=== PATIENT | male | born 1985 | race Caucasian/White ===

== ENCOUNTER 2018-02-13 12:49 | Emergency (ER) | payer OTHER ==
[2018-02-13 12:57] VITALS: BMI 25.0
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
[2018-02-13] MEDS ORDERED: SODIUM CHLORIDE 0.9% 500 ML INFUS.BAG IV ONE (14:04)
[2018-02-13 14:16] LABS: ALBUMIN 3.8 g/dl (3.4-5.0); ALK PHOS 138 U/L (45-117); ANION GAP 11 MMOL/L (8-16); BLOOD UREA NITROGEN 4 mg/dL (7-18); CALCIUM 8.1 mg/dL (8.5-10.1); CHLORIDE 98 mmol/L (98-107); CO2 26 mmol/L (21-32); CREATININE 0.5 mg/dL (0.55-1.3); GLUCOSE,RANDOM 130 mg/dL (74-106); POTASSIUM 3.5 mmol/L (3.5-5.1); SGOT/AST 226 U/L (15-37); SGPT/ALT 141 U/L (13-61); SODIUM 135 mmol/L (136-145); TOT PROT 7.9 g/dl (6.4-8.2)
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
[2018-02-13 15:22] LABS: HEMATOCRIT 44.9 % (35.4-49); HEMOGLOBIN 16.1 GM/dL (11.7-16.9); MCH 34.2 pg (25.7-33.7); MCHC 35.9 g/dl (32.0-35.9); MEAN CELL VOLUME 95.1 fl (80-96); MEAN PLT VOLUME 7.2 fl (7.5-11.1); PLATELET COUNT 151 K/MM3 (134-434); RBC 4.71 M/mm3 (4.00-5.60); RDW 12.7 % (11.9-15.9); WHITE BLOOD COUNT 7.2 K/mm3 (4.0-10.0)
[2018-02-13] MEDS ORDERED: DIPHTH,PERTUSS(ACELL),TET 0.5 ML DISP.SYRIN IM ONE (16:13)
[2018-02-13] MEDS ORDERED: SODIUM CHLORIDE 1,000 ML IV STA (16:35)
[2018-02-13] MEDS ORDERED: ACETAMINOPHEN 1000 MG/100 ML VIAL (NON FORMULARY) IVPB ONE (16:50)
[2018-02-13] MEDS ORDERED: ACETAMINOPHEN INJECTION 100 ML IVPB ONE (16:53)
[2018-02-13 17:28] LABS: URINE APPEARANCE CLEAR; URINE BILIRUBIN NEGATIVE (<2.0 mg/dL); URINE COLOR YELLOW; URINE GLUCOSE (UA) NEGATIVE (NEGATIVE); URINE KETONE TRACE (NEGATIVE); URINE LEUK ESTERASE NEGATIVE (NEGATIVE); URINE NITRITE NEGATIVE (NEGATIVE); URINE PROTEIN NEGATIVE (NEGATIVE); URINE UROBILINOGEN 4.0 E.U/dl mg/dL (0.2-1.0)
[2018-02-13 18:22] VITALS: BP 128/79; PULSE 98; TEMP 98.4
--- NOTE | 2018-02-14 10:58 | EKG ---
Test Reason : Blood Pressure : / mmHG Vent. Rate : 115 BPM Atrial Rate : 115 BPM P-R Int : 162 ms QRS Dur : 094 ms QT Int : 342 ms P-R-T Axes : 037 -07 022 degrees QTc Int : 473 ms SINUS TACHYCARDIA OTHERWISE NORMAL ECG WHEN COMPARED WITH ECG OF 04-JAN-2015 16:34, NO SIGNIFICANT CHANGE WAS FOUND Confirmed by ARACELI ROUSE MD ([id number]) on 02/14/2018 10:57:28 AM Referred By: Confirmed By:ARACELI ROUSE MD
== END 2018-02-13 18:26 | disposition home or self-care (01) ==
LOC: JER 12:49
PROC: 3E0234Z Introduction of Serum, Toxoid and Vaccine into Muscle, Percutaneous Approach (ICD-10-PCS; principal; 2018-02-13)
PROC: 3E0337Z Introduction of Electrolytic and Water Balance Substance into Peripheral Vein, Percutaneous Approach (ICD-10-PCS; 2018-02-13)
PROC: BW41ZZZ Ultrasonography of Abdomen and Pelvis (ICD-10-PCS; 2018-02-13)
PROC: BW41ZZZ Ultrasonography of Abdomen and Pelvis (ICD-10-PCS; 2018-02-13)
DX: S05.12XA Contusion of eyeball and orbital tissues, left eye, initial encounter (principal); S20.211A Contusion of right front wall of thorax, initial encounter; H11.32 Conjunctival hemorrhage, left eye; S40.812A Abrasion of left upper arm, initial encounter; S40.811A Abrasion of right upper arm, initial encounter; F10.10 Alcohol abuse, uncomplicated; E86.0 Dehydration; Y04.2XXA Assault by strike against or bumped into by another person, initial encounter; Y93.89 Activity, other specified; Y92.89 Other specified places as the place of occurrence of the external cause; Y99.8 Other external cause status; Y07.9 Unspecified perpetrator of maltreatment and neglect
CPT/HCPCS: 36415; 70450-TC; 70486-TC; 71260-TC; 72125-TC; 74177-TC; 76705; 76857-TC; 80053; 80307; 81003; 84484; 85027; 86850; 86900; 86901; 90471; 90715; 93005; 93010; 96360; 99283-25; J7030

== ENCOUNTER 2018-12-17 02:32 | Inpatient (IN) | payer SELFPAY ==
[2018-12-17 02:54] VITALS: BMI 23.8
--- NOTE | 2018-12-17 02:56 | PDOC ---
Attending Attestation - Resident Resident Name: Claudia Donaldson - ED Attending Attestation I have performed the following: I have examined & evaluated the patient, The case was reviewed & discussed with the resident, I agree w/resident's findings & plan - HPI HPI: 12/17/18 02:56 Pt comes with alcohol intox. He has been an alcoholic x 3 to 4 years. He has never been to detox. He has incteric eyes. Maternal uncle of alcoholism at the age of 52years. Pt has intox and is requesting help today. - Physicial Exam PE: 12/17/18 05:12 Purpura over extremities. ringworm like patch over distal right leg. Bruises over extremities and Righ flank/side/lower riba area. Liver is 8 cm beneath the costal margin Spleen is 2cm beneath the posterior costal margin Icteric eyes. Skin is yellowish hue. - Medical Decision Making 12/17/18 05:16 Pt has platelet count of 17; he has elevated LFTs and he has electrolyte abnormalities. He has etoh level of 451, and will go into withdrawal, when it dissipates from his system. He will be admitted for eval and treatment and he will require detox afterwars. 12/17/18 05:47 Lipase 595 - pt has pancreatitis (Mom states that he is unable to eat and he is losing weight) 12/17/18 06:13 Patient Name: KELLY PITTMAN THIS IS A PRELIMINARY REPORT FROM [facility] DATE OF SERVICE: 2018-12-17 05:09:00 IMAGES: [id number] EXAM: HEAD CT WITHOUT CONTRAST HISTORY: Low platelets, assess for bleed COMPARISON: None. FINDINGS: No evidence of hemorrhage, acute territorial infarction, mass effect, midline shift, hydrocephalus, or extra-axial collections No hyperdense arterial or venous sign Mild bilateral maxillary sinus mucoperiosteal thickening The calvarium is intact IMPRESSION: 1. No acute intracranial pathology 12/17/18 06:14 Patient Name: KELLY PITTMAN THIS IS A PRELIMINARY REPORT FROM [facility] DATE OF SERVICE: 2018-12-17 05:11:26 IMAGES: [id number] EXAM: ABDOMEN \T\ PELVIS CT WITH CONTR HISTORY: Low platelets, assess for bleed COMPARISON: None. FINDINGS: Small hiatal hernia Gastrohepatic varices Heterogeneity of the liver that is likely due to chronic liver disease. Metastatic disease may have similar imaging appearance. Clinical correlation is advised Sludge within the gallbladder No evidence of renal calculi or obstructive uropathy No evidence of intestinal obstruction, perforation, colitis, pancreatitis, to diverticular disease, or an intra-abdominal or pelvic abscess Normal appendix No free fluid Bilateral spondylolysis at L5
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
[2018-12-17] MEDS ORDERED: SODIUM CHLORIDE 1,000 ML IV STA (03:03)
[2018-12-17] MEDS ORDERED: chlordiazePOXIDE HCL 25 MG CAPSULE PO ONE (03:10)
[2018-12-17] MEDS ORDERED: chlordiazePOXIDE HCL 25 MG CAPSULE ONE ×2 (03:13→11:23)
[2018-12-17 03:45] LABS: BASO % 2.2 % (0-2.0); EOS % 0.7 % (0-4.5); HEMATOCRIT 39.1 % (35.4-49); HEMOGLOBIN 13.6 GM/dL (11.7-16.9); LYMPH % 20.1 % (8-40); MCH 35.7 pg (25.7-33.7); MCHC 34.8 g/dl (32.0-35.9); MEAN CELL VOLUME 102.5 fl (80-96); MEAN PLT VOLUME 7.4 fl (7.5-11.1); MONO % 7.6 % (3.8-10.2); NEUT % 69.4 % (42.8-82.8); RBC 3.81 M/mm3 (4.00-5.60); RDW 12.5 % (11.9-15.9); WHITE BLOOD COUNT 5.3 K/mm3 (4.0-10.0)
[2018-12-17 03:49] LABS: PLATELET COUNT 17 K/MM3 (134-434)
[2018-12-17 04:09] LABS: INR 1.64 (0.83-1.09); PROTHROMBIN TIME (PATIENT) 19.4 SEC (9.7-13.0)
[2018-12-17 04:20] LABS: ALBUMIN 3.5 g/dl (3.4-5.0); BLOOD UREA NITROGEN 4.3 mg/dL (7-18); CALCIUM 8.1 mg/dL (8.5-10.1); CREATININE 0.4 mg/dL (0.55-1.3); POTASSIUM 3.2 mmol/L (3.5-5.1); TOT PROT 8.3 g/dl (6.4-8.2)
[2018-12-17] MEDS ORDERED: FOLIC ACID INJECTION - 1 MG, THIAMINE HCL 100 MG, MULTIVIT INJECTION ADULT 10 ML in SOD... IVPB ONE ×2 (04:26→12:48)
--- NOTE | 2018-12-17 06:32 | HP ---
Admitting History and Physical - Primary Care Physician PCP: Risa Child - Admission Chief Complaint: Alcohol Intoxication, Vomiting History of Present Illness: This is a 33 y/o man with a PMHx of Asthma, Alcohol Abuse. Who presents to the ED with his family for alcohol intoxication and vomiting with streaks of blood. Per the family the patient has been drinking excessively over the past 3-4 months. Patient admits to drinking 3 bottles of Vodka daily. Patient's family reports patient vomiting NB tinged blood. Patient's mother reports weight loss and increased irritability. Patient reports leg/feet cramping and difficulty ambulating. History Source: Patient, Family Member Limitations to Obtaining History: No Limitations - Past Medical History Pulmonary: Yes: Asthma - Past Surgical History Past Surgical History: Yes: None - Smoking History Smoking history: Never smoked Have you smoked in the past 12 months: No Aproximately how many cigarettes per day: 0 - Alcohol/Substance Use Hx Alcohol Use: Yes (Daily- 3 bottles- Vodka) History of Substance Use: reports: None - Social History Usual Living Arrangement: Yes: With Parent Do you think of yourself as: Declined to answer ADL: Independent Occupation: Unemployed History of Recent Travel: No Home Medications - Allergies Allergies/Adverse Reactions: Allergies Allergy/AdvReac Type Severity Reaction Status Date / Time No Known Allergies Allergy Verified 12/17/18 02:48 - Home Medications Home Medications: Ambulatory Orders NK [No Known Home Medication] 04/18/15 Family Medical History Family Hx Diabetes: Grandmother (maternal), Grandfather (maternal), Father Other Family History: Maternal Uncle- Alcoholic age 52 Review of Systems - Review of Systems Constitutional: reports: Loss of Appetite Eyes: reports: No Symptoms HENT: reports: No Symptoms Neck: reports: No Symptoms Cardiovascular: reports: No Symptoms Respiratory: reports: No Symptoms Gastrointestinal: reports: Vomiting (with streaks of blood) Genitourinary: reports: No Symptoms Breasts: reports: No Symptoms Reported Musculoskeletal: reports: Muscle Cramps Integumentary: reports: No Symptoms Neurological: reports: Tremors, Unsteady Gait Endocrine: reports: No Symptoms Hematology/Lymphatic: reports: No Symptoms Psychiatric: reports: No Symptoms Pain Intensity: 0 Physical Examination Vital Signs: Vital Signs Temperature 98.1 F 12/17/18 02:32 Pulse Rate 102 H 12/17/18 02:32 Respiratory Rate 18 12/17/18 02:32 Blood Pressure 120/82 12/17/18 02:32 O2 Sat by Pulse Oximetry (%) 98 12/17/18 02:32 Constitutional: Yes: Thin Eyes: Yes: EOM Intact, PERRL, Sclera Icterus HENT: Yes: WNL, Atraumatic, Normocephalic, Other (tongue fasciculations) Neck: Yes: WNL, Supple, Trachea Midline Cardiovascular: Yes: WNL, Regular Rate and Rhythm, S1, S2 Respiratory: Yes: WNL, Regular, CTA Bilaterally Gastrointestinal: Yes: Normal Bowel Sounds, Hepatomegaly, Splenomegaly, Other ( ecchymotic bruising anterior flank). No: Tenderness, Tenderness, Epigastrium ...Rectal Exam: Yes: Guaiac Negative, Sphincter Tone Normal Renal/: Yes: WNL Breast(s): Yes: WNL Musculoskeletal: Yes: WNL Extremities: Yes: Erythema Edema: No Peripheral Pulses WNL: Yes Integumentary: Yes: Bruising (ecchymotic), Jaundice, Petechiae, Rash (RLE medial aspect) Neurological: Yes: Alert, Oriented, Cran Nerves II-XII Intact, Tremors ...Motor Strength: WNL Psychiatric: Yes: WNL, Alert, Oriented Labs: CBC, BMP 12/17/18 03:30 12/17/18 03:30 Laboratory Results - last 24 hr 12/17/18 12/17/18 12/17/18 03:00 03:02 03:30 WBC 5.3 RBC 3.81 L Hgb 13.6 Hct 39.1 MCV 102.5 H MCH 35.7 H MCHC 34.8 RDW 12.5 Plt Count 17 L* D MPV 7.4 L Absolute Neuts (auto) 3.7 Neutrophils % 69.4 Lymphocytes % 20.1 D Monocytes % 7.6 Eosinophils % 0.7 Basophils % 2.2 H Nucleated RBC % 0 PT with INR INR PTT (Actin FS) Sodium Potassium Chloride Carbon Dioxide Anion Gap BUN Creatinine Est GFR (CKD-EPI)AfAm Est GFR (CKD-EPI)NonAf Random Glucose Calcium Total Bilirubin AST ALT Alkaline Phosphatase Total Protein Albumin Lipase 595 H Stool Occult Blood Negative Alcohol, Quantitative Blood Type Antibody Screen 12/17/18 12/17/18 12/17/18 03:30 03:30 03:30 WBC RBC Hgb Hct MCV MCH MCHC RDW Plt Count MPV Absolute Neuts (auto) Neutrophils % Lymphocytes % Monocytes % Eosinophils % Basophils % Nucleated RBC % PT with INR INR PTT (Actin FS) 55.6 H Sodium 136 Potassium 3.2 L Chloride 95 L Carbon Dioxide 27 Anion Gap 13 BUN 4.3 L Creatinine 0.4 L Est GFR (CKD-EPI)AfAm 182.15 Est GFR (CKD-EPI)NonAf 157.16 Random Glucose 144 H Calcium 8.1 L Total Bilirubin 6.0 H AST 243 H ALT 73 H Alkaline Phosphatase 180 H Total Protein 8.3 H Albumin 3.5 Lipase Stool Occult Blood Alcohol, Quantitative 451.1 H Blood Type Antibody Screen 12/17/18 12/17/18 03:30 03:30 WBC RBC Hgb Hct MCV MCH MCHC RDW Plt Count MPV Absolute Neuts (auto) Neutrophils % Lymphocytes % Monocytes % Eosinophils % Basophils % Nucleated RBC % PT with INR 19.40 H INR 1.64 H PTT (Actin FS) Sodium Potassium Chloride Carbon Dioxide Anion Gap BUN Creatinine Est GFR (CKD-EPI)AfAm Est GFR (CKD-EPI)NonAf Random Glucose Calcium Total Bilirubin AST ALT Alkaline Phosphatase Total Protein Albumin Lipase Stool Occult Blood Alcohol, Quantitative Blood Type O POSITIVE Antibody Screen Negative Intake & Output 12/14/18 12/15/18 12/16/18 12/17/18 23:59 23:59 23:59 23:59 Weight 67.132 kg Imaging - Results Chest X-ray: Image Reviewed Cat Scan: Report Reviewed, Image Reviewed EKG: Image Reviewed Problem List - Problems (1) Thrombocytopenia Assessment/Plan: Likely secondary to Alcohol Abuse FFP x2 given in ED Stool Occult- neg Appreciate Hematology consult PPI Monitor CBC Monitor vitals Problems reviewed: Yes Code(s): D69.6 - THROMBOCYTOPENIA, UNSPECIFIED (2) Alcohol abuse Assessment/Plan: Alcohol 451 Banana Bag started in ED Librium given in ED CIWA-Ar 6 Ativan prn Cardiac monitoring Fall Precautions Appreciate Detox consult MVI, Thiamine, Folic Acid Monitor CBC, BMP, LFTs Problems reviewed: Yes Code(s): F10.10 - ALCOHOL ABUSE, UNCOMPLICATED (3) Cirrhosis Assessment/Plan: Likely due to Alcohol Abuse +Transaminitis CTAP report- small hiatal hernia, hepatosplenomegaly with signs of portal HTN, gastroesophageal upper abdominal perisplenic varices. Diffuse heterogeneous density of the liver consistent with hepatic steatosis/hepatocellular disease Appreciate GI consult Alcohol Abstinence discussed with patient, who is amendable. Hepatitis A&B panel, Hep C, Hep BE antigen, FE & TIBC add on to labs drawn this am Problems reviewed: Yes Code(s): K74.60 - UNSPECIFIED CIRRHOSIS OF LIVER Qualifiers: Hepatic cirrhosis type: alcoholic cirrhosis (4) Transaminitis Assessment/Plan: Likely due to Alcohol Abuse Monitor LFTs Appreciate GI Consult Avoid Hepatotoxic Drugs Code(s): R74.0 - NONSPEC ELEV OF LEVELS OF TRANSAMNS & LACTIC ACID DEHYDRGNSE Assessment/Plan This is a 33 y/o man with a PMHx of Asthma (no meds), Alcohol Abuse. Admitted to Telemetry for Acute Alcohol Intoxication, Thrombocytopenia for further evaluation of their emergent condition. Plan: See Problem List FEN Banana Bag@125ml/hr Replete lytes prn NPO DVT ppx OOB SCDs No ACs secondary to Acute Thrombocytopenia Visit type - Emergency Visit Emergency Visit: Yes ED Registration Date: 12/17/18 Care time: The patient presented to the Emergency Department on the above date and was hospitalized for further evaluation of their emergent condition. - New Patient This patient is new to me today: Yes Date on this admission: 12/17/18 - Critical Care Critical Care patient: No
[2018-12-17 07:49] LABS: COCAINE, UR NEGATIVE ng/ml (CUTOFF=300); METHADONE, UR NEGATIVE ng/ml (CUTOFF=300); OPIATES, URI NEGATIVE ng/ml (CUTOFF=300); PHENCYCLIDINE,URINE NEGATIVE ng/ml (CUTOFF=25); URINE AMPHETAMINES NEGATIVE ng/ml (CUTOFF=500); URINE BARBITURATES NEGATIVE ng/ml (CUTOFF=200); URINE BENZODIAZEPINES NEGATIVE ng/ml (CUTOFF=200)
[2018-12-17 09:42] LABS: IRON SERUM 69 ug/dL (50-175); TOTAL IRON BINDING CAPACITY 185 ug/dL (250-450)
[2018-12-17] MEDS: chlordiazePOXIDE HCL 25 MG CAPSULE PO SCH ×3 (11:24→20:37)
[2018-12-17] MEDS ORDERED: PNEUMOC 13-VAL CONJ-DIP CRM/PF 0.5 ML DISP.SYRIN IM ONE (12:14)
[2018-12-17] MEDS ORDERED: POTASSIUM CHLORIDE ORAL LIQUID 20 MEQ/15 ML PO ONE (12:47)
--- NOTE | 2018-12-17 12:48 | PN ---
Progress Note (short form) - Note Progress Note: Pt examined in ER Tremulous Mother at bedside Pt tolerated clears no further vomiting no abdominal pain Vital Signs - 24 hr 12/17/18 12/17/18 12/17/18 02:32 04:30 05:59 Temperature 98.1 F 98.4 F Pulse Rate 102 H Pulse Rate [ 93 H Both] Respiratory 18 20 Rate Blood Pressure 120/82 Blood Pressure 109/91 [Right] O2 Sat by Pulse 98 100 98 Oximetry (%) 12/17/18 12/17/18 12/17/18 06:15 06:30 06:31 Temperature 98.1 F 98.7 F 98.1 F Pulse Rate Pulse Rate [ 93 H 96 H 95 H Both] Respiratory 20 17 20 Rate Blood Pressure Blood Pressure 118/75 118/75 114/67 [Right] O2 Sat by Pulse 98 98 98 Oximetry (%) 12/17/18 12/17/18 12/17/18 08:32 08:45 08:56 Temperature 98.5 F 98.9 F 98.9 F Pulse Rate Pulse Rate [ 106 H 105 H 105 H Both] Respiratory 21 H 20 20 Rate Blood Pressure Blood Pressure 121/71 121/71 118/71 [Right] O2 Sat by Pulse 99 99 100 Oximetry (%) 12/17/18 12/17/18 09:00 11:56 Temperature 98.5 F Pulse Rate 115 H Pulse Rate [ Both] Respiratory 22 H Rate Blood Pressure 103/54 L Blood Pressure [Right] O2 Sat by Pulse 99 Oximetry (%) Current Medications Generic Name Dose Route Start Last Admin Trade Name Freq PRN Reason Stop Dose Admin Chlordiazepoxide HCl 10 mg 12/20/18 00:00 Librium - PO 12/20/18 23:59 Q12H PRN Signs/symptoms of Withdrawal Chlordiazepoxide HCl 10 mg 12/17/18 10:36 Librium - PO 12/19/18 23:59 Q8H PRN Signs/symptoms of Withdrawal Chlordiazepoxide HCl 25 mg 12/17/18 13:00 12/17/18 11:24 Librium - PO 12/18/18 21:01 25 mg Q8H GAV[place] Administration Chlordiazepoxide HCl 15 mg 12/19/18 05:00 Librium - PO 12/19/18 21:01 Q8H GAV[place] Chlordiazepoxide HCl 10 mg 12/20/18 05:00 Librium - PO 12/20/18 21:01 Q8H GAV[place] Chlordiazepoxide HCl 10 mg 12/21/18 05:00 Librium - PO 12/21/18 05:01 ONCE ONE Folic Acid 1 mg/ Thiamine HCl 1,000 mls @ 125 mls/hr 12/17/18 12:48 100 mg/ Multivitamins/Minerals IVPB 12/17/18 20:47 10 ml/ Sodium Chloride ONCE ONE Influenza Virus Vaccine Quadrival 60 mcg 12/17/18 14:00 Flulaval Quad [id number] IM 12/17/18 14:01 .ONCE ONE Lorazepam 2 mg 12/17/18 12:39 Ativan Injection - IVPUSH TID PRN WITHDRAWAL(CONT SUBST) Multivitamins/Minerals/Vitamin C 1 tab 12/18/18 10:00 Tab-A-Vit - PO DAILY GAVIOTA Ondansetron HCl 4 mg 12/17/18 12:50 Zofran Injection IVPUSH Q4H PRN NAUSEA AND/OR VOMITING Pantoprazole Sodium 40 mg 12/17/18 13:00 Protonix Iv IVPUSH BID [facility] Pneumococcal Polyvalent Vaccine 0.5 ml 12/17/18 14:00 Pneumovax - IM 12/17/18 14:01 .ONCE ONE Laboratory Results - last 24 hr 12/17/18 12/17/18 12/17/18 03:00 03:02 03:30 WBC 5.3 RBC 3.81 L Hgb 13.6 Hct 39.1 MCV 102.5 H MCH 35.7 H MCHC 34.8 RDW 12.5 Plt Count 17 L* D MPV 7.4 L Absolute Neuts (auto) 3.7 Neutrophils % 69.4 Lymphocytes % 20.1 D Monocytes % 7.6 Eosinophils % 0.7 Basophils % 2.2 H Nucleated RBC % 0 PT with INR INR PTT (Actin FS) Sodium Potassium Chloride Carbon Dioxide Anion Gap BUN Creatinine Est GFR (CKD-EPI)AfAm Est GFR (CKD-EPI)NonAf Random Glucose Calcium Iron TIBC Iron Saturation Unsaturated IBC Total Bilirubin AST ALT Alkaline Phosphatase Total Protein Albumin Lipase 595 H Stool Occult Blood Negative Opiates Screen Methadone Screen Barbiturate Screen Phencyclidine Screen Ur Amphetamines Screen MDMA (Ecstasy) Screen Benzodiazepines Screen Cocaine Screen U Marijuana (THC) Screen Alcohol, Quantitative Blood Type Antibody Screen 12/17/18 12/17/18 12/17/18 03:30 03:30 03:30 WBC RBC Hgb Hct MCV MCH MCHC RDW Plt Count MPV Absolute Neuts (auto) Neutrophils % Lymphocytes % Monocytes % Eosinophils % Basophils % Nucleated RBC % PT with INR INR PTT (Actin FS) 55.6 H Sodium 136 Potassium 3.2 L Chloride 95 L Carbon Dioxide 27 Anion Gap 13 BUN 4.3 L Creatinine 0.4 L Est GFR (CKD-EPI)AfAm 182.15 Est GFR (CKD-EPI)NonAf 157.16 Random Glucose 144 H Calcium 8.1 L Iron TIBC Iron Saturation Unsaturated IBC Total Bilirubin 6.0 H AST 243 H ALT 73 H Alkaline Phosphatase 180 H Total Protein 8.3 H Albumin 3.5 Lipase Stool Occult Blood Opiates Screen Methadone Screen Barbiturate Screen Phencyclidine Screen Ur Amphetamines Screen MDMA (Ecstasy) Screen Benzodiazepines Screen Cocaine Screen U Marijuana (THC) Screen Alcohol, Quantitative 451.1 H Blood Type Antibody Screen 12/17/18 12/17/18 12/17/18 03:30 03:30 07:15 WBC RBC Hgb Hct MCV MCH MCHC RDW Plt Count MPV Absolute Neuts (auto) Neutrophils % Lymphocytes % Monocytes % Eosinophils % Basophils % Nucleated RBC % PT with INR 19.40 H INR 1.64 H PTT (Actin FS) Sodium Potassium Chloride Carbon Dioxide Anion Gap BUN Creatinine Est GFR (CKD-EPI)AfAm Est GFR (CKD-EPI)NonAf Random Glucose Calcium Iron TIBC Iron Saturation Unsaturated IBC Total Bilirubin AST ALT Alkaline Phosphatase Total Protein Albumin Lipase Stool Occult Blood Opiates Screen Negative Methadone Screen Negative Barbiturate Screen Negative Phencyclidine Screen Negative Ur Amphetamines Screen Negative MDMA (Ecstasy) Screen Negative Benzodiazepines Screen Negative Cocaine Screen Negative U Marijuana (THC) Screen Negative Alcohol, Quantitative Blood Type O POSITIVE Antibody Screen Negative 12/17/18 08:47 WBC RBC Hgb Hct MCV MCH MCHC RDW Plt Count MPV Absolute Neuts (auto) Neutrophils % Lymphocytes % Monocytes % Eosinophils % Basophils % Nucleated RBC % PT with INR INR PTT (Actin FS) Sodium Potassium Chloride Carbon Dioxide Anion Gap BUN Creatinine Est GFR (CKD-EPI)AfAm Est GFR (CKD-EPI)NonAf Random Glucose Calcium Iron 69 TIBC 185 L Iron Saturation 37 Unsaturated IBC 116 L Total Bilirubin AST ALT Alkaline Phosphatase Total Protein Albumin Lipase Stool Occult Blood Opiates Screen Methadone Screen Barbiturate Screen Phencyclidine Screen Ur Amphetamines Screen MDMA (Ecstasy) Screen Benzodiazepines Screen Cocaine Screen U Marijuana (THC) Screen Alcohol, Quantitative Blood Type Antibody Screen S1 S2 RRR Lungs decreased abd-- hepatomegaly+ Ext -- tremors+, no edema petechiae+ icteric++ PLAN Alcohol withdrawal Cirrhosis Thrombocytopenia -- start on Librium protocol -- replace lytes -- received 2 units of platelets in ER-- repeat CBC -- GI eval -- Spoke with ICU attending to consider ICU monitoring -- monitor labs -- protonix iv -- Hematology eval -- prognosis guarded Problem List - Problems (1) Cirrhosis Code(s): K74.60 - UNSPECIFIED CIRRHOSIS OF LIVER (2) Alcoholic liver damage Code(s): K70.9 - ALCOHOLIC LIVER DISEASE, UNSPECIFIED (3) Thrombocytopenia Code(s): D69.6 - THROMBOCYTOPENIA, UNSPECIFIED (4) Alcohol abuse Code(s): F10.10 - ALCOHOL ABUSE, UNCOMPLICATED (5) Dehydration Code(s): E86.0 - DEHYDRATION
[2018-12-17] MEDS ORDERED: ONDANSETRON 4 MG/2 ML VIAL IVPUSH PRN (12:50)
[2018-12-17] MEDS ORDERED: FLU VACCINE QUAD 60 MCG/0.5 ML (MDV 19-20) IM ONE (14:00)
[2018-12-17] MEDS ORDERED: PNEUMOCOCCAL 23 VACCINE 0.5 ML VIAL IM ONE (14:00)
[2018-12-17] MEDS: LORazepam 2 MG/ML SDV VIAL IVPUSH PRN ×2 (14:14→20:47)
[2018-12-17] MEDS: PANTOPRAZOLE SODIUM 40 MG VIAL IVPUSH SCH ×2 (14:14→22:01)
[2018-12-17] MEDS ORDERED: chlordiazePOXIDE 5 MG CAPSULE ONE (14:55)
[2018-12-17] MEDS: chlordiazePOXIDE HCL 10 MG CAPSULE PO PRN (15:01)
--- NOTE | 2018-12-17 15:44 | CONSULT ---
Consultation: REQUESTING PROVIDER: Dr. Kwon CONSULT REQUEST: We have been asked to medically evaluate this patient for ICU. HISTORY OF PRESENT ILLNESS: 33 y/o M with PMH asthma (not on tx) and alcohol abuse, who presented initially for alcohol intoxication and subsequent withdrawal. His last drink was last night, he had 5 glasses of vodka. States that at baseline, he drinks 3 bottles of vodka every day, intermittently over the last few years. Has never been in detox or rehab. States that he initially was recommended to come to [facility] by his parents for his sx. On admission, pt with ISRAEL of 450, with progression and subsequent concern for severe withdrawal - ICU was consulted for this reason. On my evaluation, pt with CIWA 8 in mild-moderate withdrawal. With tongue fasciculations, tremors, hiccups however states that he is feeling better. With petechiae and scattered bruising on his UE, LE, and abdomen. Was found to have a platelet count of 17k and received 2 units of platelets. Denies CINTRON, fever, chills, SOB, chest pain or pressure or changes in urinary or bowel function. REVIEW OF SYSTEMS: +tongue fasciculations +tremors PHYSICAL EXAMINATION Vital Signs 12/17/18 12/17/18 12/17/18 09:00 11:56 14:01 Temperature 98.5 F 98.0 F Pulse Rate 115 H 92 H Pulse Rate [ Both] Respiratory 22 H Rate Blood Pressure 103/54 L 130/78 Blood Pressure [Right] O2 Sat by Pulse 99 Oximetry (%) GENERAL: resting comfortably in bed , hiccuping HEAD: Normal with no signs of trauma. EYES: Pupils equal, round and reactive to light, extraocular movements intact, sclera anicteric, conjunctiva clear. No lid lag. EARS, NOSE, THROAT: Ears normal, nares patent, oropharynx clear without exudates. Dry MM. +tongue fasciculations NECK: Normal range of motion, supple without lymphadenopathy, JVD, or masses. LUNGS: Breath sounds equal, clear to auscultation bilaterally. No wheezes, and no crackles. No accessory muscle use. HEART: +tachycardic rate and rhythm, normal S1 and S2 without murmur, rub or gallop. ABDOMEN: Soft, nontender, not distended, normoactive bowel sounds. +ecchymoses on RUQ UPPER EXTREMITIES: +petechiae and scattered bruising LOWER EXTREMITIES: +w/ scaled lesions over malleoli . 2+ pt pulses NEUROLOGICAL: Cranial nerves II-XII intact PSYCHIATRIC: Cooperative. Laboratory Results 12/17/18 12/17/18 12/17/18 03:00 03:30 03:30 WBC 5.3 Hgb 13.6 Hct 39.1 MCV 102.5 H Plt Count 17 L* D Sodium 136 Potassium 3.2 L Chloride 95 L Carbon Dioxide 27 BUN 4.3 L Creatinine 0.4 L Random Glucose 144 H TIBC Iron Saturation Unsaturated IBC Total Bilirubin 6.0 H AST 243 H ALT 73 H Alkaline Phosphatase 180 H Stool Occult Blood Negative Alcohol, Quantitative 12/17/18 12/17/18 03:30 08:47 WBC Random Glucose TIBC 185 L Iron Saturation 37 Unsaturated IBC 116 L Total Bilirubin AST ALT Alkaline Phosphatase Stool Occult Blood Alcohol, Quantitative 451.[address]: (-) for changes CTAP: +splenomegaly, portal HTN, gallbladder distended w/ sludge, +esophageal and paraesophageal varices ASSESSMENT/PLAN: 33 y/o M with PMH asthma (not on tx) and alcohol abuse, who presented initially for alcohol intoxication and subsequent withdrawal. On admission, pt with ISRAEL of 450, with progression and subsequent concern for severe withdrawal - ICU was consulted for this reason. #Alcohol withdrawal -currently mild-moderate. CIWA 8 -recommend c/w CIWA assessments, ativan for withdrawal as pt potentially cirrhotic -recommend c/w vit B12, folate supplementation #Thrombocytopenia possible 2/2 cirrhosis -with evidence of splenomegaly on CTAP. can cause splenic sequestration -recommend repeat CBC, f/u signs of bruising, overt bleed -s/p 2 units platelets -heme f/u #Esophageal varices -currently with stable H/H, no signs of acute bleed. FOBT (-) -recommend f/u GI, on protonix currently. not actively bleeding or requiring octreotide #Asthma -currently not in exacerbation. can use ventolin PRN Currently pt is hemodynamically stable with improving withdrawal and CIWA. Recommend to continue monitoring. At this time, recommend pt continue tx on telemetry, not ICU at this time. However please call back if pt status changes. Thank you for this consultative opportunity. Aurora Hermosillo MD PGY-3 ICU team Visit type - Emergency Visit Emergency Visit: No - New Patient This patient is new to me today: Yes Date on this admission: 12/17/18 - Critical Care Critical Care patient: Yes Total Critical Care Time (in minutes): 45 Critical Care Statement: The care of this patient involved high complexity decision making to prevent further life threatening deterioration of the patient 's condition and/or to evaluate & treat vital organ system(s) failure or risk of failure.
[2018-12-17] MEDS ORDERED: PIPERACILLIN/TAZOB 4.5 GM 4.5 GM in DEXTROSE 5%-WATER 100 ML IVPB SCH (15:45)
--- NOTE | 2018-12-17 16:39 | CONS ---
DATE OF CONSULTATION: 12/17/2018 GASTROINTESTINAL CONSULTATION HISTORY OF PRESENT ILLNESS: The patient is a 33-year-old man with a past medical history of asthma and alcohol abuse who states he drinks about three small bottles of vodka daily. He has been drinking excessively over the past couple of months, prompting his family to bring him in to the emergency room for further evaluation. Apparently, he had vomited with some small streaks of blood and food. He denies previous episodes of hematemesis or encephelopathy. He denies any melena, hematochezia or syncope while at home. He has not had an endoscopic evaluation in the past. He states he has been told he has liver disease in the past. PAST MEDICAL AND SURGICAL HISTORY: These are as listed in the HPI. SOCIAL HISTORY: He does not smoke. However, he drinks daily as per the HPI. FAMILY HISTORY: No history of GI or [employer] malignancy or liver disease. ALLERGIES: No known drug allergies. REVIEW OF SYSTEMS: As per the HPI. HOME MEDICATIONS: Denies. PHYSICAL EXAMINATION: Vital Signs: Temperature 98, pulse 92, blood pressure 130/78, pulse oximetry 99 % on room air, respiratory rate 12. General: The patient is in no acute distress. HEENT: Icteric sclerae. Cardiovascular: S1, S2. Regular rate and rhythm. Lungs: Bilaterally clear to auscultation. Abdomen: Soft and nontender. Extremities: No edema. He does have a mild tremor. He is alert and oriented x3 at this time. LABS: White blood cell count 5.3, hemoglobin 13, hematocrit 39, MCV 102, platelet count 17, INR 1.6, sodium 136, potassium 3.2, BUN 43, creatinine 0.4, iron 1.8, total bilirubin 6, AST of 243, ALT of 73, alkaline phosphatase 180. Total protein of 8.3. Lipase 595. Stool for occult blood is negative. Tox screen is positive for alcohol of L4-5, L5-S1. Serologies for hepatitis A, B and C are pending at this time. The patient had a CT scan of the abdomen and pelvis which no signs of active bleeding or hematoma in the abdomen or pelvis, hepatomegaly, signs of portal hypertension , gastroesophageal and upper abdominal parasplenic varices and abdominal wall varices with recanalization of the umbilical vein. No signs of portal vein or splenic vein thrombosis. No sign of pancreatitis. No signs of gallbladder disease. There were small reactive lymph nodes in the upper abdomen which are similar to previous exam. IMPRESSION: 1. Transaminitis. 2. Alcoholic hepatitis. DISCRIMINANT FUNCTION: 35. RECOMMENDATIONS: 1. Alcohol withdrawal protocol. 2. trend h/h q12 - he would benefit from a diagnostic egd once he is optimized. At this time there is no sign of an overt GI bleed. However, considering his imaging reveals varices octreotide infusion was added to the regimen. 4. Trend liver tests q. 12 hour. 5. Avoid NSAIDs. 6. Repeat a CBC; platelet count is 17, likely secondary to underlying liver disease. However, this should be repeated. 7. Continue with PPI. 8. Antibiotics as per primary medical team. 9. Would also start him on Trental therapy. Ordered. 10. Chapa-culture the patient. If cultures are negative and his symptoms do not improve, steroid therapy can also be initial initiated. 11. Alcohol abstinence was explained in detail and recommended with the family at the bedside. 12. Follow up liver serologies for chronic and inherited chronic liver disease. 13. This patient will be followed closely by the GI service. DO [place] LAW/[id number] MTDD
[2018-12-17] MEDS: IBUPROFEN 800 MG/8 ML IJ IVPB PRN (16:48)
[2018-12-17 16:56] LABS: BASO % 2.3 % (0-2.0); EOS % 0.6 % (0-4.5); HEMATOCRIT 32.8 % (35.4-49); HEMOGLOBIN 11.2 GM/dL (11.7-16.9); LYMPH % 3.9 % (8-40); MCH 35.7 pg (25.7-33.7); MCHC 34.3 g/dl (32.0-35.9); MEAN PLT VOLUME 8.7 fl (7.5-11.1); MONO % 2.6 % (3.8-10.2); NEUT % 90.6 % (42.8-82.8); PLATELET COUNT 46 K/MM3 (134-434); RBC 3.15 M/mm3 (4.00-5.60); RDW 12.6 % (11.9-15.9); WHITE BLOOD COUNT 5.2 K/mm3 (4.0-10.0)
[2018-12-17] MEDS ORDERED: DEXTROSE 5%-WATER 100 ML IVPB ONE ×2 (17:54)
[2018-12-17] MEDS ORDERED: PIPERACILLIN/TAZOBACTAM 4.5 GM VIAL IVPB ONE ×3 (17:54)
[2018-12-17] MEDS ORDERED: MAGNESIUM SULF 50% (8.12 MEQ/2 ML-1 GM VIAL) IVPB ONE (18:08)
[2018-12-17] MEDS ORDERED: MAGNESIUM SULF 50% (8.12 MEQ/2 ML-1 GM VIAL) ONE (18:11)
[2018-12-17] MEDS: PIPERACILLIN/TAZOB 4.5 GM 4.5 GM in DEXTROSE 5%-WATER 100 ML IVPB SCH (18:24)
[2018-12-17] MEDS: PENTOXIFYLLINE 400 MG TABLET.ER PO SCH (18:38)
[2018-12-17] MEDS: OCTREOTIDE ACETATE 200 MCG, OCTREOTIDE ACETATE 1,000 MCG in DEXTROSE 5%-WATER - 496 ML IVPB SCH (19:11)
--- NOTE | 2018-12-17 19:45 | CONSULT ---
Consult Consult Specialty:: heme Referred by:: Dr. Chew Reason for Consultation:: Thrombocytopenia - History of Present Illness Chief Complaint: Intoxication History of Present Illness: 33M with no PMHx brought to ED for etoh detox. Per family, pt has been drinking for months, reportedly, 3 bottles of vodka daily. Hematology consulted for plt count 17. Last plt count in 2018 was 151. Hgb 13.6 on current admission and WBC normal. PT 19. PTT 55.6. TB 6, elevated transaminases and ALP. Etoh level 451. Responded well to 2 u PRBC. Denies bleeding except for small amounts of blood when he vomiting about 2 weeks ago. Denies melena, hematochezia, epistaxis. Endorses bruising. No prior known hx of blood issues. No family hx of blood disorders. CT with HSM, signs of portal htn and GE, upper abdominal perisplenic varices. - Past Medical History Pulmonary: Yes: Asthma - Past Surgical History Past Surgical History: Yes: None - Alcohol/Substance Use Hx Alcohol Use: Yes (Daily) History of Substance Use: reports: None - Smoking History Smoking history: Never smoked Have you smoked in the past 12 months: No Aproximately how many cigarettes per day: 0 - Social History History of Recent Travel: No Home Medications - Allergies Allergies/Adverse Reactions: Allergies Allergy/AdvReac Type Severity Reaction Status Date / Time No Known Allergies Allergy Verified 12/17/18 02:48 - Home Medications Home Medications: Ambulatory Orders NK [No Known Home Medication] 04/18/15 Review of Systems - Review of Systems Constitutional: reports: Unintentional Wgt. Loss Cardiovascular: reports: No Symptoms Respiratory: reports: No Symptoms Gastrointestinal: reports: No Symptoms, Vomiting Physical Exam Vital Signs: Vital Signs Temperature 98.0 F 12/17/18 14:01 Pulse Rate 92 H 12/17/18 14:01 Respiratory Rate 22 H 12/17/18 11:56 Blood Pressure 130/78 12/17/18 14:01 O2 Sat by Pulse Oximetry (%) 99 12/17/18 09:00 Constitutional: Yes: No Distress Eyes: Yes: Sclera Icterus Neck: No: Lymphadenopathy Cardiovascular: Yes: Regular Rate and Rhythm Respiratory: Yes: Regular, CTA Bilaterally Gastrointestinal: Yes: Soft. No: Distention, Tenderness Edema: No Integumentary: Yes: Bruising, Petechiae Neurological: Yes: Tremors Labs: CBC, BMP 12/17/18 15:53 12/17/18 03:30 Assessment/Plan 33M with no heavy etoh use/dependence admitted with alcohol intoxication. Peripheral smear confirms thrombocytopenia, no plt clumps, no schistocytes. Thrombocytopenia 2/2 liver disease, splenomegaly and direct bone marrow toxicity from etoh. Responded well to MDP -- plts count 40s after 2 units. Currently without obvious bleeding. Ordered folic acid/b12.
[2018-12-18] MEDS: D5-NS + 20 MEQ KCL - 20 MEQ/1,000 ML INFUS.BAG IV SCH ×2 (00:30→16:52)
[2018-12-18] MEDS ORDERED: DEXTROSE 5%-WATER 100 ML IVPB ONE ×2 (00:44→07:52)
[2018-12-18] MEDS ORDERED: PIPERACILLIN/TAZOBACTAM 4.5 GM VIAL IVPB ONE ×2 (00:44→07:52)
[2018-12-18] MEDS: PIPERACILLIN/TAZOB 4.5 GM 4.5 GM in DEXTROSE 5%-WATER 100 ML IVPB SCH ×2 (02:02→09:34)
[2018-12-18] MEDS ORDERED: chlordiazePOXIDE 5 MG CAPSULE ONE ×2 (02:40→09:43)
[2018-12-18] MEDS: chlordiazePOXIDE HCL 10 MG CAPSULE PO PRN ×2 (02:42→10:04)
[2018-12-18 04:38] LABS: PHOSPHOROUS 1.9 mg/dL (2.5-4.9)
[2018-12-18] MEDS: chlordiazePOXIDE HCL 25 MG CAPSULE PO SCH ×3 (05:40→20:33)
[2018-12-18 07:21] LABS: BASO % 1.5 % (0-2.0); EOS % 1.4 % (0-4.5); HEMATOCRIT 33.3 % (35.4-49); HEMOGLOBIN 11.8 GM/dL (11.7-16.9); LYMPH % 6.1 % (8-40); MCH 36.5 pg (25.7-33.7); MCHC 35.5 g/dl (32.0-35.9); MEAN CELL VOLUME 102.8 fl (80-96); MEAN PLT VOLUME 8.8 fl (7.5-11.1); MONO % 5.8 % (3.8-10.2); NEUT % 85.2 % (42.8-82.8); PLATELET COUNT 38 K/MM3 (134-434); RBC 3.24 M/mm3 (4.00-5.60); RDW 12.8 % (11.9-15.9); WHITE BLOOD COUNT 6.3 K/mm3 (4.0-10.0)
--- NOTE | 2018-12-18 07:40 | PN.GI ---
GI Progress Note Subjective: no new complaints - states he is feeling better - Objective Vital Signs: Vital Signs Temperature 99.1 F 12/18/18 06:00 Pulse Rate 107 H 12/18/18 06:00 Respiratory Rate 20 12/18/18 06:00 Blood Pressure 128/83 12/18/18 06:00 O2 Sat by Pulse Oximetry (%) 97 12/17/18 21:00 Constitutional: Well Nourished, No Distress, Calm Eyes: Yes: WNL HENT: Yes: WNL Neck: Yes: WNL, Supple Cardiovascular: Yes: WNL, Regular Rate and Rhythm Respiratory: Yes: WNL, Regular, CTA Bilaterally Gastrointestinal Inspection: Yes: WNL ...Auscultate: Yes: Normoactive Bowel Sounds Edema: No Labs: CBC, BMP 12/18/18 06:30 INR, PTT INR 1.64 (0.83-1.09) H 12/17/18 03:30 Problem List - Problems (1) Hepatitis Assessment/Plan: 1. ETOH associated hepatitis 2. ? GI bleed - advance diet to full liquid - monitor h/h q12 - trend lft and inr qd - f/u final cultures - c/w trental - c/w octreotide - c/w ppi - withdrawal protocol / librium taper - will need egd once improved - no sign of overt GI bleed at this time Code(s): K75.9 - INFLAMMATORY LIVER DISEASE, UNSPECIFIED (2) Alcoholic liver damage Code(s): K70.9 - ALCOHOLIC LIVER DISEASE, UNSPECIFIED (3) Cirrhosis Code(s): K74.60 - UNSPECIFIED CIRRHOSIS OF LIVER Qualifiers: Hepatic cirrhosis type: alcoholic cirrhosis (4) Thrombocytopenia Code(s): D69.6 - THROMBOCYTOPENIA, UNSPECIFIED (5) Transaminitis Code(s): R74.0 - NONSPEC ELEV OF LEVELS OF TRANSAMNS & LACTIC ACID DEHYDRGNSE (6) Alcohol abuse Code(s): F10.10 - ALCOHOL ABUSE, UNCOMPLICATED
[2018-12-18] MEDS: LORazepam 2 MG/ML SDV VIAL IVPUSH PRN ×3 (08:24→21:42)
[2018-12-18 08:40] LABS: BILIRUBIN,TOTAL 6.8 mg/dL (0.2-1); CALCIUM 7.4 mg/dL (8.5-10.1); CREATININE 0.5 mg/dL (0.55-1.3); MAGNESIUM 1.6 mg/dL (1.8-2.4); POTASSIUM 3.3 mmol/L (3.5-5.1)
[2018-12-18] MEDS ORDERED: MAGNESIUM SULF 50% (8.12 MEQ/2 ML-1 GM VIAL) IVPB ONE (09:24)
[2018-12-18] MEDS: PENTOXIFYLLINE 400 MG TABLET.ER PO SCH ×3 (09:36→16:50)
[2018-12-18] MEDS: MULTIVITAMINS (DAILY MVI) TABLET (FP) PO SCH (09:36)
[2018-12-18] MEDS: PANTOPRAZOLE SODIUM 40 MG VIAL IVPUSH SCH ×2 (09:36→21:41)
[2018-12-18] MEDS: KCL 10 MEQ IVPB 10 MEQ/100 ML INFUS.BAG IVPB SCH ×3 (10:03→12:12)
--- NOTE | 2018-12-18 10:18 | PN ---
Progress Note (short form) - Note Progress Note: Pt examined in tele Tremulous Mother at bedside Pt tolerated clears no further vomiting no abdominal pain no distress Vital Signs - 24 hr 12/17/18 12/17/18 12/17/18 11:56 14:01 21:00 Temperature 98.5 F 98.0 F Pulse Rate 115 H 92 H Respiratory 22 H 22 H Rate Blood Pressure 103/54 L 130/78 O2 Sat by Pulse 97 Oximetry (%) 12/17/18 12/18/18 12/18/18 22:00 02:00 06:00 Temperature 99.2 F 98.2 F 99.1 F Pulse Rate 121 H 89 107 H Respiratory 22 H 20 20 Rate Blood Pressure 127/73 123/76 128/83 O2 Sat by Pulse Oximetry (%) Current Medications Generic Name Dose Route Start Last Admin Trade Name Freq PRN Reason Stop Dose Admin Chlordiazepoxide HCl 10 mg 12/20/18 00:00 Librium - PO 12/20/18 23:59 Q12H PRN Signs/symptoms of Withdrawal Chlordiazepoxide HCl 10 mg 12/17/18 10:36 12/18/18 10:04 Librium - PO 12/19/18 23:59 10 mg Q8H PRN Administration Signs/symptoms of Withdrawal Chlordiazepoxide HCl 25 mg 12/17/18 13:00 12/18/18 05:40 Librium - PO 12/18/18 21:01 25 mg Q8H [facility] Administration Chlordiazepoxide HCl 15 mg 12/19/18 05:00 Librium - PO 12/19/18 21:01 Q8H [facility] Chlordiazepoxide HCl 10 mg 12/20/18 05:00 Librium - PO 12/20/18 21:01 Q8H [facility] Chlordiazepoxide HCl 10 mg 12/21/18 05:00 Librium - PO 12/21/18 05:01 ONCE ONE Dextrose/Sodium Chloride 20 meq in 1,000 mls @ 100 mls/hr 12/17/18 15:45 00:30 Dextrose 5%-Normal Saline+20 Meq Kcl - IV 100 mls/hr ASDIR [facility] Administration Piperacillin Sod/Tazobactam 100 mls @ 200 mls/hr 12/17/18 15:45 Sod 4.5 gm/ Dextrose IVPB Q8H-IV [facility] Protocol Octreotide Acetate 200 mcg/ 500 mls @ 20.833 mls/hr 12/17/18 18:00 12/17/18 19:11 Octreotide Acetate 1,000 mcg/ IVPB 20.833 mls/hr Dextrose Q24H [facility] Administration Piperacillin Sod/Tazobactam 100 mls @ 200 mls/hr 12/17/18 17:35 12/18/18 09: 34 Sod 4.5 gm/ Dextrose IVPB 12/18/18 10:29 200 mls/hr Q8H-IV [facility] Administration Protocol Potassium Chloride 10 meq in 100 mls @ 100 mls/hr 12/18/18 09:30 12/18/18 10: 03 Potassium Chloride 10 Meq Premix Ivpb - IVPB 12/18/18 12:29 100 mls/hr Q60M [facility] Administration Ibuprofen 600 mg 12/17/18 15:43 12/17/18 16:48 Caldolor Injection - IVPB 600 mg Q6H PRN Administration FEVER Lorazepam 2 mg 12/17/18 12:39 12/18/18 08:24 Ativan Injection - IVPUSH 2 mg TID PRN Administration WITHDRAWAL(CONT SUBST) Multivitamins/Minerals/Vitamin C 1 tab 12/18/18 10:00 12/18/18 09:36 Tab-A-Vit - PO 1 tab DAILY [facility] Administration Ondansetron HCl 4 mg 12/17/18 12:50 Zofran Injection IVPUSH Q4H PRN NAUSEA AND/OR VOMITING Pantoprazole Sodium 40 mg 12/17/18 13:00 12/18/18 09:36 Protonix Iv IVPUSH 40 mg BID [facility] Administration Pentoxifylline 400 mg 12/17/18 17:30 12/18/18 09:36 Trental - PO 400 mg TIDCM [facility] Administration Laboratory Results - last 24 hr 12/17/18 12/17/18 12/17/18 08:47 15:53 15:53 WBC 5.2 RBC 3.15 L Hgb 11.2 L Hct 32.8 L D MCV 104.0 H MCH 35.7 H MCHC 34.3 RDW 12.6 Plt Count 46 L D MPV 8.7 D Absolute Neuts (auto) 4.7 Neutrophils % 90.6 H Lymphocytes % 3.9 L D Monocytes % 2.6 L Eosinophils % 0.6 Basophils % 2.3 H Nucleated RBC % 0 Fibrinogen Sodium Potassium Chloride Carbon Dioxide Anion Gap BUN Creatinine Est GFR (CKD-EPI)AfAm Est GFR (CKD-EPI)NonAf Random Glucose Calcium Phosphorus 1.9 L Magnesium 1.0 L Total Bilirubin AST ALT Alkaline Phosphatase Total Protein Albumin Vitamin B12 Serum Folate Hepatitis Be Antigen Negative 12/18/18 12/18/18 12/18/18 06:30 06:30 06:30 WBC 6.3 RBC 3.24 L Hgb 11.8 Hct 33.3 L MCV 102.8 H MCH 36.5 H MCHC 35.5 RDW 12.8 Plt Count 38 L MPV 8.8 Absolute Neuts (auto) 5.4 Neutrophils % 85.2 H Lymphocytes % 6.1 L D Monocytes % 5.8 D Eosinophils % 1.4 D Basophils % 1.5 Nucleated RBC % 0 Fibrinogen 246.0 Sodium 135 L Potassium 3.3 L Chloride 98 Carbon Dioxide 28 Anion Gap 9 BUN 1.0 L* Creatinine 0.5 L Est GFR (CKD-EPI)AfAm 166.19 Est GFR (CKD-EPI)NonAf 143.39 Random Glucose 214 H Calcium 7.4 L Phosphorus Magnesium 1.6 L Total Bilirubin 6.8 H AST 165 H ALT 56 Alkaline Phosphatase 123 H Total Protein 7.0 Albumin 3.0 L Vitamin B12 1445 H Serum Folate 5 Hepatitis Be Antigen S1 S2 RRR Lungs decreased abd-- hepatomegaly+ Ext -- tremors+, no edema petechiae+ icteric++ PLAN Alcohol withdrawal Cirrhosis Thrombocytopenia -- on Librium protocol --Octreotide gtt started -- replace lytes -- received 2 units of platelets in ER-- CBC noted -- GI eval appreciated -- dc zofran -- Tele-- Qtc interval elevated- may be due to Octreotide gtt, low electrolytes- - will consult with cardiology -- monitor labs -- protonix iv -- prognosis guarded Problem List - Problems (1) Cirrhosis Code(s): K74.60 - UNSPECIFIED CIRRHOSIS OF LIVER Qualifiers: Hepatic cirrhosis type: alcoholic cirrhosis (2) Alcoholic liver damage Code(s): K70.9 - ALCOHOLIC LIVER DISEASE, UNSPECIFIED (3) Thrombocytopenia Code(s): D69.6 - THROMBOCYTOPENIA, UNSPECIFIED (4) Alcohol abuse Code(s): F10.10 - ALCOHOL ABUSE, UNCOMPLICATED (5) Dehydration Code(s): E86.0 - DEHYDRATION
--- NOTE | 2018-12-18 16:53 | EKG ---
Test Reason : Blood Pressure : / mmHG Vent. Rate : 093 BPM Atrial Rate : 093 BPM P-R Int : 186 ms QRS Dur : 104 ms QT Int : 410 ms P-R-T Axes : 060 007 077 degrees QTc Int : 509 ms NORMAL SINUS RHYTHM NONSPECIFIC ST AND T WAVE ABNORMALITY PROLONGED QT ABNORMAL ECG WHEN COMPARED WITH ECG OF 13-FEB-2018 14:19, Confirmed by ARACELI ROUSE MD ([id number]) on 12/18/2018 4:52:41 PM Referred By: Confirmed By:ARACELI ROUSE MD
[2018-12-18] MEDS: OCTREOTIDE ACETATE 200 MCG, OCTREOTIDE ACETATE 1,000 MCG in DEXTROSE 5%-WATER - 496 ML IVPB SCH (18:00)
--- NOTE | 2018-12-18 19:15 | PN ---
Progress Note, Physician History of Present Illness: No bleeding - Current Medication List Current Medications: Active Medications Chlordiazepoxide HCl (Librium -) 10 mg PO Q12H PRN PRN Reason: Signs/symptoms of Withdrawal Stop: 12/20/18 23:59 Chlordiazepoxide HCl (Librium -) 10 mg PO Q8H PRN PRN Reason: Signs/symptoms of Withdrawal Stop: 12/19/18 23:59 Last Admin: 12/18/18 10:04 Dose: 10 mg Chlordiazepoxide HCl (Librium -) 25 mg PO Q8H [facility] Stop: 12/18/18 21:01 Last Admin: 12/18/18 13:02 Dose: 25 mg Chlordiazepoxide HCl (Librium -) 15 mg PO Q8H [facility] Stop: 12/19/18 21:01 Chlordiazepoxide HCl (Librium -) 10 mg PO Q8H [facility] Stop: 12/20/18 21:01 Chlordiazepoxide HCl (Librium -) 10 mg PO ONCE ONE Stop: 12/21/18 05:01 Dextrose/Sodium Chloride (Dextrose 5%-Normal Saline+20 Meq Kcl -) 20 meq in 1, 000 mls @ 100 mls/hr IV ASDIR [facility] Last Admin: 12/18/18 16:52 Dose: 100 mls/hr Piperacillin Sod/Tazobactam (Sod 4.5 gm/ Dextrose) 100 mls @ 200 mls/hr IVPB Q8H-IV [facility]; Protocol Octreotide Acetate 200 mcg/Octreotide Acetate 1,000 mcg/Dextrose 500 mls @ 20.833 mls/hr IVPB Q24H [facility] Last Admin: 12/18/18 18:00 Dose: 20.833 mls/hr Ibuprofen (Caldolor Injection -) 600 mg IVPB Q6H PRN PRN Reason: FEVER Last Admin: 12/17/18 16:48 Dose: 600 mg Lorazepam (Ativan Injection -) 2 mg IVPUSH TID PRN PRN Reason: WITHDRAWAL(CONT SUBST) Last Admin: 12/18/18 16:50 Dose: 2 mg Multivitamins/Minerals/Vitamin C (Tab-A-Vit -) 1 tab PO DAILY [facility] Last Admin: 12/18/18 09:36 Dose: 1 tab Ondansetron HCl (Zofran Injection) 4 mg IVPUSH Q4H PRN PRN Reason: NAUSEA AND/OR VOMITING Pantoprazole Sodium (Protonix Iv) 40 mg IVPUSH BID [facility] Last Admin: 12/18/18 09:36 Dose: 40 mg Pentoxifylline (Trental -) 400 mg PO TIDCM [facility] Last Admin: 12/18/18 16:50 Dose: 400 mg - Objective Vital Signs: Vital Signs Temperature 99.1 F 12/18/18 14:00 Pulse Rate 93 H 12/18/18 14:00 Respiratory Rate 20 12/18/18 10:00 Blood Pressure 123/83 12/18/18 14:00 O2 Sat by Pulse Oximetry (%) 97 12/18/18 10:00 Constitutional: Yes: No Distress, Calm Cardiovascular: Yes: Tachycardia Respiratory: Yes: Regular, CTA Bilaterally Gastrointestinal: Yes: Soft Edema: No Integumentary: Yes: Bruising, Petechiae Labs: CBC, BMP 12/18/18 06:30 12/18/18 06:30 INR, PTT INR 1.64 (0.83-1.09) H 12/17/18 03:30 Fibrinogen 246.0 mg/dL (238-498) 12/18/18 06:30 Assessment/Plan 33M with no heavy etoh use/dependence admitted with alcohol intoxication. Peripheral smear confirms thrombocytopenia, no plt clumps, no schistocytes. Thrombocytopenia 2/2 liver disease, splenomegaly and direct bone marrow toxicity from etoh. Responded well to MDP -- plts count 40s after 2 units, relatively stable in 30s today. Currently without obvious bleeding. Start folic acid 1 mg daily for low normal level. Would also give 5 mg PO of Vit K for possible Vit K deficiency component of coagulopathy though it's likely primarily 2/2 liver disease.
[2018-12-19] MEDS: chlordiazePOXIDE 5 MG CAPSULE PO SCH ×3 (05:49→21:33)
[2018-12-19 07:41] LABS: BASO % 1.4 % (0-2.0); EOS % 3.4 % (0-4.5); HEMATOCRIT 33.3 % (35.4-49); HEMOGLOBIN 11.9 GM/dL (11.7-16.9); LYMPH % 7.6 % (8-40); MCH 36.7 pg (25.7-33.7); MCHC 35.9 g/dl (32.0-35.9); MEAN CELL VOLUME 102.2 fl (80-96); MEAN PLT VOLUME 8.6 fl (7.5-11.1); MONO % 10.5 % (3.8-10.2); NEUT % 77.1 % (42.8-82.8); RBC 3.26 M/mm3 (4.00-5.60); RDW 12.6 % (11.9-15.9); WHITE BLOOD COUNT 6.9 K/mm3 (4.0-10.0)
[2018-12-19 08:12] LABS: BILIRUBIN,TOTAL 8.5 mg/dL (0.2-1); CALCIUM 7.8 mg/dL (8.5-10.1); CREATININE 0.5 mg/dL (0.55-1.3); MAGNESIUM 1.4 mg/dL (1.8-2.4); POTASSIUM 3.5 mmol/L (3.5-5.1); TOT PROT 7.1 g/dl (6.4-8.2)
[2018-12-19] MEDS: PENTOXIFYLLINE 400 MG TABLET.ER PO SCH ×3 (08:15→17:20)
[2018-12-19] MEDS: LORazepam 2 MG/ML SDV VIAL IVPUSH PRN (08:20)
[2018-12-19 08:23] LABS: PLATELET COUNT 34 K/MM3 (134-434)
[2018-12-19 08:50] LABS: BLOOD UREA NITROGEN 1.3 mg/dL (7-18); PHOSPHOROUS 0.8 mg/dL (2.5-4.9)
--- NOTE | 2018-12-19 09:59 | CON.CARD ---
Consult Consult Specialty:: Cardiology Referred by:: Hospitalist Reason for Consultation:: Cardiac evaluation - History of Present Illness Chief Complaint: ETOH intoxication History of Present Illness: Patient is a 33 year old male with underlying history of bronchial asthma and ETOH abuse who presents to [facility] with ETOH intoxication and vomiting streaks of blood. His mother is at bedside and they state that patient has been drinking heavily for the past 3-4 months with bottles of vodka daily. He denies chest pain, shortness of breath or palpitations. He denies paroxysmal nocturnal dyspnea or orthopnea. He denies fever or chills. He denies headache. Denies abdominal pain. - History Source History Provided By: Patient, Family Member, Medical Record Limitations to Obtaining History: Clinical Condition - Past Medical History Pulmonary: Yes: Asthma - Past Surgical History Past Surgical History: Yes: None - Alcohol/Substance Use Hx Alcohol Use: Yes (Daily- 3 bottles- Vodka) History of Substance Use: reports: None - Smoking History Smoking history: Never smoked Have you smoked in the past 12 months: No Aproximately how many cigarettes per day: 0 - Social History ADL: Independent Occupation: Unemployed History of Recent Travel: No Home Medications - Allergies Allergies/Adverse Reactions: Allergies Allergy/AdvReac Type Severity Reaction Status Date / Time No Known Allergies Allergy Verified 12/17/18 02:48 - Home Medications Home Medications: Ambulatory Orders NK [No Known Home Medication] 04/18/15 Family Medical History Family Hx Diabetes: Father Review of Systems - Review of Systems Constitutional: denies: Chills, Fever Cardiovascular: denies: Chest Pain, Palpitations, Shortness of Breath Respiratory: denies: Cough, Hemoptysis, Orthopnea, PND, SOB, SOB on Exertion Gastrointestinal: reports: Vomiting, Vomiting Blood. denies: Abdominal Pain, Constipation, Diarrhea, Melena, Nausea, Rectal Bleeding Musculoskeletal: denies: Back Pain, Joint Pain Neurological: denies: Dizziness, Headache, Seizure, Syncope Vital Signs: Vital Signs Temperature 98.9 F 12/19/18 06:00 Pulse Rate 87 12/19/18 06:00 Respiratory Rate 22 H 12/19/18 06:00 Blood Pressure 126/86 12/19/18 06:00 O2 Sat by Pulse Oximetry (%) 100 12/18/18 21:00 Eyes: Yes: PERRL HENT: Yes: Atraumatic Neck: Yes: Supple Respiratory: Yes: CTA Bilaterally Gastrointestinal: Yes: Normal Bowel Sounds, Soft. No: Tenderness Cardiovascular: Yes: Regular Rate and Rhythm JVD: No Carotid Bruit: No PMI: Non-Displaced Heart Sounds: Yes: S1, S2. No: Gallop Murmur: No: Systolic Murmur, Diastolic Murmur Edema: No - Other Data Labs, Other Data: CBC, BMP 12/19/18 06:55 12/19/18 06:00 INR, PTT INR 1.64 (0.83-1.09) H 12/17/18 03:30 Fibrinogen 246.0 mg/dL (238-498) 12/18/18 06:30 Laboratory Results - last 24 hr 12/19/18 12/19/18 06:00 06:55 WBC 6.9 RBC 3.26 L Hgb 11.9 Hct 33.3 L MCV 102.2 H MCH 36.7 H MCHC 35.9 RDW 12.6 Plt Count 34 L* MPV 8.6 Absolute Neuts (auto) 5.3 Neutrophils % 77.1 Lymphocytes % 7.6 L D Monocytes % 10.5 H D Eosinophils % 3.4 D Basophils % 1.4 Nucleated RBC % 0 Sodium 133 L Potassium 3.5 Chloride 98 Carbon Dioxide 26 Anion Gap 9 BUN 1.3 L* Creatinine 0.5 L Est GFR (CKD-EPI)AfAm 166.19 Est GFR (CKD-EPI)NonAf 143.39 Random Glucose 179 H Calcium 7.8 L Phosphorus 0.8 L* Magnesium 1.4 L Total Bilirubin 8.5 H AST 116 H ALT 47 Alkaline Phosphatase 115 Total Protein 7.1 Albumin 3.0 L Serum Folate 4 Normal sinus rhythm with nonspecific ST-T abnormality Imaging - Results Chest X-ray: Report Reviewed (Unremarkable) Cat Scan: Report Reviewed (Head CT unremarkable) EKG: Report Reviewed Problem List - Problems (1) Alcoholic liver damage Code(s): K70.9 - ALCOHOLIC LIVER DISEASE, UNSPECIFIED (2) Cirrhosis Code(s): K74.60 - UNSPECIFIED CIRRHOSIS OF LIVER Qualifiers: Hepatic cirrhosis type: alcoholic cirrhosis (3) Thrombocytopenia Code(s): D69.6 - THROMBOCYTOPENIA, UNSPECIFIED (4) Transaminitis Code(s): R74.0 - NONSPEC ELEV OF LEVELS OF TRANSAMNS & LACTIC ACID DEHYDRGNSE (5) Alcohol abuse Code(s): F10.10 - ALCOHOL ABUSE, UNCOMPLICATED (6) Non-cardiac chest pain Code(s): R07.89 - OTHER CHEST PAIN Assessment/Plan 1. ETOH intoxication 2. Abnormal LFT and thrombocytopenia due to ETOH abuse 3. Abnormal ECG PLAN: 1. Detox and monitor for withdrawl 2. GI input noted 3. GI protection with PPI 4. Monitor LFT and platelet 5. Echocardiography to assess LV/RV and valvular function Further plans are to follow Guevara Ríos MD
[2018-12-19] MEDS: MULTIVITAMINS (DAILY MVI) TABLET (FP) PO SCH (10:33)
[2018-12-19] MEDS: PANTOPRAZOLE SODIUM 40 MG VIAL IVPUSH SCH (11:00)
[2018-12-19] MEDS: IBUPROFEN 800 MG/8 ML IJ IVPB PRN (11:02)
--- NOTE | 2018-12-19 11:40 | PN ---
Progress Note (short form) - Note Progress Note: pt seen/ examined chart reviewed sleepy/ arousable no distress not shaking mother at bedside. has fever today -- 101 Vital Signs Temp 98.9 F 12/19/18 06:00 Pulse 87 12/19/18 06:00 Resp 22 H 12/19/18 06:00 BP 126/86 12/19/18 06:00 Pulse Ox 100 12/18/18 21:00 Intake & Output 12/18/18 12/18/18 12/19/18 11:59 23:59 11:59 Intake Total 1295.6 853.2 965.6 Output Total 400 Balance 895.6 853.2 965.6 Intake: IV 895.6 483.2 845.6 Banana bag 200 DEXTROSE 5%-NORMAL SALINE 550 400 700 +20 MEQ KCL - 20 meq In 1 ,000 ml @ 100 mls/hr IV ASDIR G[facility]IOTA Rx#:[id number] Octeotride 83.2 145.6 SL R AC 145.6 IVPB 100 10 Oral 300 360 120 Output: Urine 400 Void 400 Other: Voiding Method Diaper Diaper Urinal # Unmeasured Voids Void 2 1 2 Bowel Movement No No No Active Medications Chlordiazepoxide HCl (Librium -) 10 mg PO Q12H PRN PRN Reason: Signs/symptoms of Withdrawal Stop: 12/20/18 23:59 Chlordiazepoxide HCl (Librium -) 10 mg PO Q8H PRN PRN Reason: Signs/symptoms of Withdrawal Stop: 12/19/18 23:59 Last Admin: 12/18/18 10:04 Dose: 10 mg Chlordiazepoxide HCl (Librium -) 15 mg PO Q8H [facility] Stop: 12/19/18 21:01 Last Admin: 12/19/18 05:49 Dose: 15 mg Chlordiazepoxide HCl (Librium -) 10 mg PO Q8H [facility] Stop: 12/20/18 21:01 Chlordiazepoxide HCl (Librium -) 10 mg PO ONCE ONE Stop: 12/21/18 05:01 Dextrose/Sodium Chloride (Dextrose 5%-Normal Saline+20 Meq Kcl -) 20 meq in 1, 000 mls @ 100 mls/hr IV ASDIR [facility] Last Admin: 12/18/18 16:52 Dose: 100 mls/hr Piperacillin Sod/Tazobactam (Sod 4.5 gm/ Dextrose) 100 mls @ 200 mls/hr IVPB Q8H-IV [facility]; Protocol Octreotide Acetate 200 mcg/Octreotide Acetate 1,000 mcg/Dextrose 500 mls @ 20.833 mls/hr IVPB Q24H [facility] Last Admin: 12/18/18 18:00 Dose: 20.833 mls/hr Ibuprofen (Caldolor Injection -) 600 mg IVPB Q6H PRN PRN Reason: FEVER Last Admin: 12/19/18 11:02 Dose: 600 mg Lorazepam (Ativan Injection -) 2 mg IVPUSH TID PRN PRN Reason: WITHDRAWAL(CONT SUBST) Last Admin: 12/19/18 08:20 Dose: 2 mg Multivitamins/Minerals/Vitamin C (Tab-A-Vit -) 1 tab PO DAILY [facility] Last Admin: 12/19/18 10:33 Dose: 1 tab Ondansetron HCl (Zofran Injection) 4 mg IVPUSH Q4H PRN PRN Reason: NAUSEA AND/OR VOMITING Pantoprazole Sodium (Protonix Iv) 40 mg IVPUSH BID [facility] Last Admin: 12/19/18 11:00 Dose: 40 mg Pentoxifylline (Trental -) 400 mg PO TIDCM [facility] Last Admin: 12/19/18 08:15 Dose: 400 mg CBC, BMP 12/19/18 06:55 12/19/18 06:00 Abnormal Lab Results 12/19/18 12/19/18 06:00 06:55 RBC 3.26 L Hct 33.3 L MCV 102.2 H MCH 36.7 H Plt Count 34 L* Lymphocytes % 7.6 L D Monocytes % 10.5 H D Sodium 133 L BUN 1.3 L* Creatinine 0.5 L Random Glucose 179 H Calcium 7.8 L Phosphorus 0.8 L* Magnesium 1.4 L Total Bilirubin 8.5 H AST 116 H Albumin 3.0 L Microbiology 12/18/18 00:00 Urine Culture - Final Urine - Urine Clean Catch NO GROWTH OBTAINED 12/17/18 16:15 Blood Culture - Preliminary Blood - Peripheral Venous NO GROWTH OBTAINED AFTER 24 HOURS, INCUBATION TO CONTINUE FOR 4 DAYS. 12/17/18 16:15 Blood Culture - Preliminary Blood - Peripheral Venous NO GROWTH OBTAINED AFTER 24 HOURS, INCUBATION TO CONTINUE FOR 4 DAYS. Physical S1 S2 RRR Lungs decreased abd-- hepatomegaly+ Ext -- no edema petechiae+ icteric++ PLAN Alcohol withdrawal Cirrhosis Thrombocytopenia Fever -- on Librium protocol --Octreotide gtt -- replace lytes -- received 2 units of platelets in ER-- CBC noted -- GI on case -- dc zofran -- Tele-- Qtc interval elevated- may be due to Octreotide gtt, low electrolytes- - Cardiology consult pending -- monitor labs -- protonix iv -- prognosis guarded - will consult i/d also for fever-- Discussed with Dr. Nolen - Will follow - will consult renal also for electrolyte imbalance Problem List - Problems (1) Fever Code(s): R50.9 - FEVER, UNSPECIFIED (2) Electrolyte and fluid disorder Code(s): E87.8 - OTH DISORDERS OF ELECTROLYTE AND FLUID BALANCE, NEC (3) Alcoholic liver damage Code(s): K70.9 - ALCOHOLIC LIVER DISEASE, UNSPECIFIED (4) Cirrhosis Code(s): K74.60 - UNSPECIFIED CIRRHOSIS OF LIVER Qualifiers: Hepatic cirrhosis type: alcoholic cirrhosis (5) Thrombocytopenia Code(s): D69.6 - THROMBOCYTOPENIA, UNSPECIFIED
[2018-12-19] MEDS ORDERED: MAGNESIUM SULF 50% (8.12 MEQ/2 ML-1 GM VIAL) IVPB ONE (12:00)
[2018-12-19] MEDS ORDERED: POTASSIUM PHOSPHATE 30 MM in DEXTROSE 5%-WATER - 500 ML IVPB ONE (12:30)
--- NOTE | 2018-12-19 12:35 | CONSULT ---
Consult - text type - Consultation Consultation Note: Renal consult for electrolyte inbalance This is a 33 year old gentleman with history of asthma and alcohol abuse who presented with N/V and hematemesis and noted to have hypophosphatemia , hypomagnesemia, and hypokalemia. Pt is on alcohol withdrawal protocol. Pt is groggy and not able to provide history. Mother at the bedside who reports he has had poor oral intake for several weeks. PMhx: as above Allergies: NKDA Family Hx: NC Social Hx: + ETOH abuse ROS: unable to obtain because of clinical status Home Medications Medication Instructions Recorded NK [No Known Home Medication] 04/18/15 Vital Signs Temperature 98.9 F 12/19/18 06:00 Pulse Rate 87 12/19/18 06:00 Respiratory Rate 22 H 12/19/18 06:00 Blood Pressure 126/86 12/19/18 06:00 O2 Sat by Pulse Oximetry (%) 100 12/18/18 21:00 Intake & Output 12/16/18 12/17/18 12/18/18 12/19/18 23:59 23:59 23:59 23:59 Intake Total 1468.2 2148.8 965.6 Output Total 200 400 Balance 1268.2 1748.8 965.6 Weight 67.132 kg NAD groggy neck supple RRR CTA, soft NT/ND no LE edema CBC, BMP 12/19/18 06:55 12/19/18 06:00 Laboratory Tests 12/18/18 12/19/18 06:30 06:00 Chloride 98 Calcium 7.8 L Phosphorus 0.8 L* Magnesium 1.4 L Albumin 3.0 L Current Medications Chlordiazepoxide HCl (Librium -) 10 mg PO Q12H PRN PRN Reason: Signs/symptoms of Withdrawal Stop: 12/20/18 23:59 Chlordiazepoxide HCl (Librium -) 10 mg PO Q8H PRN PRN Reason: Signs/symptoms of Withdrawal Stop: 12/19/18 23:59 Last Admin: 12/18/18 10:04 Dose: 10 mg Chlordiazepoxide HCl (Librium -) 15 mg PO Q8H [facility] Stop: 12/19/18 21:01 Last Admin: 12/19/18 05:49 Dose: 15 mg Chlordiazepoxide HCl (Librium -) 10 mg PO Q8H [facility] Stop: 12/20/18 21:01 Chlordiazepoxide HCl (Librium -) 10 mg PO ONCE ONE Stop: 12/21/18 05:01 Ergocalciferol (Drisdol Oral Solution -) 8,000 units PO DAILY [facility] Dextrose/Sodium Chloride (Dextrose 5%-Normal Saline+20 Meq Kcl -) 20 meq in 1, 000 mls @ 100 mls/hr IV ASDIR [facility] Last Admin: 12/18/18 16:52 Dose: 100 mls/hr Piperacillin Sod/Tazobactam (Sod 4.5 gm/ Dextrose) 100 mls @ 200 mls/hr IVPB Q8H-IV [facility]; Protocol Octreotide Acetate 200 mcg/Octreotide Acetate 1,000 mcg/Dextrose 500 mls @ 20.833 mls/hr IVPB Q24H [facility] Last Admin: 12/18/18 18:00 Dose: 20.833 mls/hr Potassium Phosphate 30 mm/ (Dextrose) 510 mls @ 62.5 mls/hr IVPB ONCE ONE Stop: 12/19/18 20:39 Ibuprofen (Caldolor Injection -) 600 mg IVPB Q6H PRN PRN Reason: FEVER Last Admin: 12/19/18 11:02 Dose: 600 mg Lorazepam (Ativan Injection -) 2 mg IVPUSH TID PRN PRN Reason: WITHDRAWAL(CONT SUBST) Last Admin: 12/19/18 08:20 Dose: 2 mg Magnesium Chloride (Slow-Mag -) 64 mg PO DAILY [facility] Multivitamins/Minerals/Vitamin C (Tab-A-Vit -) 1 tab PO DAILY [facility] Last Admin: 12/19/18 10:33 Dose: 1 tab Ondansetron HCl (Zofran Injection) 4 mg IVPUSH Q4H PRN PRN Reason: NAUSEA AND/OR VOMITING Pantoprazole Sodium (Protonix Iv) 40 mg IVPUSH BID [facility] Last Admin: 12/19/18 11:00 Dose: 40 mg Pentoxifylline (Trental -) 400 mg PO TIDCM [facility] Last Admin: 12/19/18 12:08 Dose: 400 mg Potassium Phos/Sodium Phos (Phos-Nak Packet -) 1 packet PO TID [facility] Stop: 12/21/18 06:01 33 year old gentleman with history of asthma and alcohol abuse who presented with N/V and hematemesis and noted to have hypophosphatemia, hypomagnesemia, and hypokalemia. 1. Hypophosphatemia 2. Hypomagnesemia 3. Hyponatremia (hypovolveimc) 4. ETOH abuse 5. Alcohol withdrawal 6. Hematemesis 7. Thrombocytopenia from alcohol Give IV K-phos 30mol x 1, start Oral Neutra-phos TID Start Ergocalciferol 8000 units daily Give Mag Sulfate 2g IV, Oral Slo-Mg 64mg Daily Oral solute intake as tolerated Continue isotonic saline continue ETOH withdrawal protocol Remainder of management as per PMD Thank you Will follow Omar Guidry DO
--- NOTE | 2018-12-19 13:01 | CON.ID ---
Consult Consult Specialty:: infectious diseases Referred by:: Reason for Consultation:: fever,etoh withdrawl - History of Present Illness Chief Complaint: fever History of Present Illness: 33 year old gentleman with history of asthma and alcohol abuse who presented with N/V and hematemesis and noted to have hypophosphatemia, hypomagnesemia, and hypokalemia. Pt is on alcohol withdrawal protocol. Pt is groggy and not able to provide history. patient spiked a fever currently patient is still lethargic and not able to answer questions - History Source History Provided By: Medical Record - Past Medical History Pulmonary: Yes: Asthma - Past Surgical History Past Surgical History: Yes: None - Alcohol/Substance Use Hx Alcohol Use: Yes (Daily- 3 bottles- Vodka) History of Substance Use: reports: None - Smoking History Smoking history: Never smoked Have you smoked in the past 12 months: No Aproximately how many cigarettes per day: 0 - Social History ADL: Independent Occupation: Unemployed History of Recent Travel: No Home Medications - Allergies Allergies/Adverse Reactions: Allergies Allergy/AdvReac Type Severity Reaction Status Date / Time No Known Allergies Allergy Verified 12/17/18 02:48 - Home Medications Home Medications: Ambulatory Orders NK [No Known Home Medication] 04/18/15 Review of Systems Unable to obtain ROS, reason: unable to obtain Physical Exam Vital Signs: Vital Signs Temperature 98.9 F 12/19/18 06:00 Pulse Rate 87 12/19/18 06:00 Respiratory Rate 22 H 12/19/18 06:00 Blood Pressure 126/86 12/19/18 06:00 O2 Sat by Pulse Oximetry (%) 100 12/18/18 21:00 Constitutional: Yes: Calm, Other Cardiovascular: Yes: S1, S2 Respiratory: Yes: Regular, CTA Bilaterally Gastrointestinal: Yes: Normal Bowel Sounds, Soft Musculoskeletal: Yes: WNL Extremities: Yes: WNL Neurological: Yes: Lethargy Labs: CBC, BMP 12/19/18 06:55 12/19/18 06:00 Imaging - Results Chest X-ray: Report Reviewed, Image Reviewed Cat Scan: Report Reviewed, Image Reviewed Assessment/Plan robgladys List - Problems (1) Fever Code(s): R50.9 - FEVER, UNSPECIFIED (2) Electrolyte and fluid disorder Code(s): E87.8 - OTH DISORDERS OF ELECTROLYTE AND FLUID BALANCE, NEC (3) Alcoholic liver damage Code(s): K70.9 - ALCOHOLIC LIVER DISEASE, UNSPECIFIED (4) Cirrhosis Code(s): K74.60 - UNSPECIFIED CIRRHOSIS OF LIVER Qualifiers: Hepatic cirrhosis type: alcoholic cirrhosis (5) Thrombocytopenia Code(s): D69.6 - THROMBOCYTOPENIA, UNSPECIFIED plan i am going to watch the patient at the moment not going to initiate any abx if patient continues to spike fever will start him on ceftriaxone nutrition hydration
--- NOTE | 2018-12-19 13:14 | ECHO ---
Name: KELLY PITTMAN Exam:Adult Echocardiogram Study Date: 12/19/2018 12:23 PM Age: 33 yrs Reason For Study: ETOH INTOXICATION MMode/2D Measurements & Calculations IVSd: 0.76 cm Ao root diam: 3.1 cm LVIDd: 5.4 cm LA dimension: 3.5 cm LVIDs: 3.9 cm LVPWd: 0.75 cm EDV(Teich): 141.9 ml LVOT diam: 2.2 cm ESV(Teich): 66.3 ml Doppler Measurements & Calculations MV E max sandeep: 82.7 cm/sec Ao V2 max: 157.5 cm/sec MV A max sandeep: 61.1 cm/sec Ao max P.9 mmHg MV E/A: 1.4 Ao V2 mean: 126.4 cm/sec MV dec time: 0.14 sec Ao mean P.8 mmHg Ao V2 VTI: 34.3 cm SUJATHA(I,D): 2.1 cm2 SUJATHA(V,D): 2.6 cm2 LV V1 max P.9 mmHg MR max sandeep: 366.7 cm/sec LV V1 mean P.5 mmHg MR max P.0 mmHg LV V1 max: 110.8 cm/sec LV V1 mean: 73.8 cm/sec LV V1 VTI: 19.0 cm SV(LVOT): 70.9 ml TR max sandeep: 185.6 cm/sec TR max P.3 mmHg Med Peak E' Sandeep: 9.2 cm/sec Med E/e': 8.9 Lat Peak E' Sandeep: 12.3 cm/sec Lat E/e': 6.7 Procedure A complete two-dimensional transthoracic echocardiogram was performed (2D, M-mode, Doppler and color flow Doppler). Left Ventricle The left ventricle is normal in size. Left ventricular systolic function is normal. Ejection Fraction = 55- 60%. No regional wall motion abnormalities noted. Right Ventricle The right ventricle is normal size. The right ventricular systolic function is normal. RV systolic TD I is 15 cm/s. Atria The left atrial size is normal. Right atrial size is normal. Mitral Valve The mitral valve is normal in structure and function. There is mild mitral regurgitation. Tricuspid Valve The tricuspid valve is normal in structure and function. There is mild tricuspid regurgitation. Right ventricular systolic pressure is normal. Aortic Valve The aortic valve is normal in structure and function. Trace aortic regurgitation. Pulmonic Valve The pulmonic valve is not well visualized. Great Vessels The aortic root is normal size. Pericardium/Pleura There is no pericardial effusion. Interpretation Summary The left ventricle is normal in size. Left ventricular systolic function is normal. No regional wall motion abnormalities noted. Ejection Fraction = 55-60%. The right ventricular systolic function is normal. The left atrial size is normal. Right atrial size is normal. There is mild mitral regurgitation. There is mild tricuspid regurgitation. Right ventricular systolic pressure is normal. Trace aortic regurgitation. There is no pericardial effusion. Guevara Ríos MD 12/19/2018 01:13 PM
--- NOTE | 2018-12-19 13:16 | PN ---
Progress Note (short form) - Note Progress Note: GI follow up No further emesis or hematemesis hgb stable Just starting abdominal US upon my interview Vital Signs Temp 98.9 F 12/19/18 06:00 Pulse 87 12/19/18 06:00 Resp 22 H 12/19/18 06:00 BP 126/86 12/19/18 06:00 Pulse Ox 100 12/18/18 21:00 NAD +icterus Abdomen benign +tremulous CBC, BMP 12/19/18 06:55 12/19/18 06:00 Hepatic Panel Total Bilirubin 8.5 mg/dL (0.2-1) H 12/19/18 06:00 AST 116 U/L (15-37) H 12/19/18 06:00 ALT 47 U/L (13-61) 12/19/18 06:00 Alkaline Phosphatase 115 U/L (45-117) 12/19/18 06:00 Albumin 3.0 g/dl (3.4-5.0) L 12/19/18 06:00 No INR since admit Impression: 33M with ETOH likely cirrhosis with acute decompensation likely 2/2 ETOH and withdrawal; doesn't seem like ETOH hepatitis given absence of WBC count and alk phos is normal Continue benzos for withdrawal f/u US Given absence of GI bleeding and sounded more emesis induced to begin with, can dc PPI and octreotide drips Needs daily LFTs and coags 5d of abx given scant GI bleeding Low Na diet Can discuss diagnostic EGD when pt is out of withdrawal
[2018-12-19] MEDS ORDERED: PT OWN MED DRAWER 7, Y5N ONE ×2 (13:49→13:57)
[2018-12-19] MEDS: ERGOCALCIFEROL 8,000 UNITS/ML DROPSBTL PO SCH (14:11)
[2018-12-19] MEDS: MAGNESIUM CL 64 MG TABLET.SA PO SCH (14:12)
[2018-12-19] MEDS: NAPH,MB-DB/K PH,MBDB POWDER PACKET PO SCH ×2 (14:12→21:33)
[2018-12-19] MEDS: D5-NS + 20 MEQ KCL - 20 MEQ/1,000 ML INFUS.BAG IV SCH (17:20)
[2018-12-19 18:51] LABS: HEMATOCRIT 32.6 % (35.4-49); HEMOGLOBIN 11.3 GM/dL (11.7-16.9); MCH 36.3 pg (25.7-33.7); MCHC 34.7 g/dl (32.0-35.9); MEAN CELL VOLUME 104.6 fl (80-96); MEAN PLT VOLUME 9.2 fl (7.5-11.1); RBC 3.11 M/mm3 (4.00-5.60); RDW 12.6 % (11.9-15.9); WHITE BLOOD COUNT 6.7 K/mm3 (4.0-10.0)
[2018-12-19 18:53] LABS: PLATELET COUNT 33 K/MM3 (134-434)
[2018-12-19 21:37] LABS: PHOSPHOROUS 2.9 mg/dL (2.5-4.9); POTASSIUM 3.9 mmol/L (3.5-5.1)
[2018-12-19 22:11] LABS: HEP B CORE AB, TOT Negative (Negative)
[2018-12-20] MEDS ORDERED: chlordiazePOXIDE HCL 10 MG CAPSULE PO PRN
[2018-12-20] MEDS: LORazepam 2 MG/ML SDV VIAL IVPUSH PRN (01:01)
[2018-12-20] MEDS ORDERED: chlordiazePOXIDE 5 MG CAPSULE ONE ×4 (05:45→21:20)
[2018-12-20] MEDS: chlordiazePOXIDE HCL 10 MG CAPSULE PO SCH ×3 (05:51→21:52)
[2018-12-20] MEDS: NAPH,MB-DB/K PH,MBDB POWDER PACKET PO SCH ×3 (05:52→21:53)
[2018-12-20 07:06] LABS: HEMATOCRIT 33.4 % (35.4-49); HEMOGLOBIN 11.9 GM/dL (11.7-16.9); MCH 36.9 pg (25.7-33.7); MCHC 35.6 g/dl (32.0-35.9); MEAN CELL VOLUME 103.4 fl (80-96); PLATELET COUNT 41 K/MM3 (134-434); RBC 3.23 M/mm3 (4.00-5.60); RDW 12.8 % (11.9-15.9); WHITE BLOOD COUNT 7.4 K/mm3 (4.0-10.0)
[2018-12-20 07:18] LABS: INR 2.12 (0.83-1.09); PROTHROMBIN TIME (PATIENT) 25.2 SEC (9.7-13.0)
[2018-12-20 07:49] LABS: ALBUMIN 2.9 g/dl (3.4-5.0); BILIRUBIN,TOTAL 10.7 mg/dL (0.2-1); BLOOD UREA NITROGEN 3.3 mg/dL (7-18); CREATININE 0.4 mg/dL (0.55-1.3); MAGNESIUM 1.7 mg/dL (1.8-2.4); POTASSIUM 4.1 mmol/L (3.5-5.1); TOT PROT 6.8 g/dl (6.4-8.2)
[2018-12-20] MEDS: MAGNESIUM CL 64 MG TABLET.SA PO SCH (10:15)
[2018-12-20] MEDS ORDERED: MAGNESIUM SULF 50% (8.12 MEQ/2 ML-1 GM VIAL) IVPB ONE (10:15)
[2018-12-20] MEDS: ERGOCALCIFEROL 8,000 UNITS/ML DROPSBTL PO SCH (10:15)
[2018-12-20] MEDS ORDERED: PT OWN MED DRAWER 7, Y5N ONE ×2 (10:17→17:00)
[2018-12-20] MEDS: MULTIVITAMINS (DAILY MVI) TABLET (FP) PO SCH (10:50)
[2018-12-20] MEDS: PENTOXIFYLLINE 400 MG TABLET.ER PO SCH ×3 (10:50→17:25)
--- NOTE | 2018-12-20 11:34 | PN ---
Progress Note (short form) - Note Progress Note: Pt examined in tele Tremulous no further vomiting no abdominal pain no distress Vital Signs - 24 hr 12/19/18 12/19/18 12/19/18 14:00 17:00 21:00 Temperature 98.0 F 98.7 F Pulse Rate 97 H 95 H Respiratory 22 H 20 20 Rate Blood Pressure 124/86 120/75 125/74 O2 Sat by Pulse 100 Oximetry (%) 12/20/18 12/20/18 01:00 05:00 Temperature 98.4 F 98.3 F Pulse Rate 87 98 H Respiratory 20 20 Rate Blood Pressure 127/70 119/65 O2 Sat by Pulse Oximetry (%) Current Medications Generic Name Dose Route Start Last Admin Trade Name Freq PRN Reason Stop Dose Admin Chlordiazepoxide HCl 10 mg 12/20/18 00:00 12/20/18 10:49 Librium - PO 12/20/18 23:59 10 mg Q12H PRN Administration Signs/symptoms of Withdrawal Chlordiazepoxide HCl 10 mg 12/20/18 05:00 12/20/18 05:51 Librium - PO 12/20/18 21:01 10 mg Q8H [facility] Administration Chlordiazepoxide HCl 10 mg 12/21/18 05:00 Librium - PO 12/21/18 05:01 ONCE ONE Ergocalciferol 8,000 units 12/19/18 12:00 12/19/18 14:11 Drisdol Oral Solution - PO 8,000 units DAILY [facility] Administration Dextrose/Sodium Chloride 20 meq in 1,000 mls @ 100 mls/hr 12/17/18 15:45 17:20 Dextrose 5%-Normal Saline+20 Meq Kcl - IV 100 mls/hr ASDIR [facility] Administration Piperacillin Sod/Tazobactam 100 mls @ 200 mls/hr 12/17/18 15:45 Sod 4.5 gm/ Dextrose IVPB Q8H-IV [facility] Protocol Ibuprofen 600 mg 12/17/18 15:43 12/19/18 11:02 Caldolor Injection - IVPB 600 mg Q6H PRN Administration FEVER Lorazepam 2 mg 12/17/18 12:39 12/20/18 01:01 Ativan Injection - IVPUSH 2 mg TID PRN Administration WITHDRAWAL(CONT SUBST) Magnesium Chloride 64 mg 12/19/18 11:45 12/19/18 14:12 Slow-Mag - PO 64 mg DAILY [facility] Administration Multivitamins/Minerals/Vitamin C 1 tab 12/18/18 10:00 12/20/18 10:50 Tab-A-Vit - PO 1 tab DAILY [facility] Administration Ondansetron HCl 4 mg 12/17/18 12:50 Zofran Injection IVPUSH Q4H PRN NAUSEA AND/OR VOMITING Pentoxifylline 400 mg 12/17/18 17:30 12/20/18 10:50 Trental - PO 400 mg TIDCM [facility] Administration Potassium Phos/Sodium Phos 1 packet 12/19/18 14:00 12/20/18 05:52 Phos-Nak Packet - PO 12/21/18 06:01 1 packet TID [facility] Administration Laboratory Results - last 24 hr 12/17/18 12/19/18 12/19/18 08:47 18:00 20:00 WBC 6.7 RBC 3.11 L Hgb 11.3 L Hct 32.6 L MCV 104.6 H MCH 36.3 H MCHC 34.7 RDW 12.6 Plt Count 33 L* MPV 9.2 PT with INR INR Sodium Potassium 3.9 Chloride Carbon Dioxide Anion Gap BUN Creatinine Est GFR (CKD-EPI)AfAm Est GFR (CKD-EPI)NonAf Random Glucose Calcium Phosphorus 2.9 Magnesium Total Bilirubin AST ALT Alkaline Phosphatase Total Protein Albumin Hep A IgM Ab Confirm Negative Hepatitis A Ab Total Negative Hep Bs Antigen Negative Hep Bs Antibody Non reactive Hep B Core Total Ab Negative Hep B Core IgM Ab Negative Hepatitis Be Antibody Negative Hepatitis Be Antigen Negative 12/20/18 12/20/18 12/20/18 06:15 06:15 06:15 WBC 7.4 RBC 3.23 L Hgb 11.9 Hct 33.4 L MCV 103.4 H MCH 36.9 H MCHC 35.6 RDW 12.8 Plt Count 41 L D MPV 9.0 PT with INR 25.20 H INR 2.12 H Sodium 133 L Potassium 4.1 Chloride 103 Carbon Dioxide 23 Anion Gap 7 L BUN 3.3 L Creatinine 0.4 L Est GFR (CKD-EPI)AfAm 182.15 Est GFR (CKD-EPI)NonAf 157.16 Random Glucose 100 Calcium 8.0 L Phosphorus 2.0 L Magnesium 1.7 L Total Bilirubin 10.7 H D AST 99 H ALT 46 Alkaline Phosphatase 111 Total Protein 6.8 Albumin 2.9 L Hep A IgM Ab Confirm Hepatitis A Ab Total Hep Bs Antigen Hep Bs Antibody Hep B Core Total Ab Hep B Core IgM Ab Hepatitis Be Antibody Hepatitis Be Antigen S1 S2 RRR Lungs decreased abd-- hepatomegaly+ Ext -- tremors+, no edema petechiae+ icteric++ PLAN Alcohol withdrawal Cirrhosis Thrombocytopenia -- on Librium protocol --Octreotide gtt dc -- replace lytes -- dc motrin -- need vit K -- GI eval appreciated -- dc zofran -- monitor labs -- prognosis guarded Problem List - Problems (1) Cirrhosis Code(s): K74.60 - UNSPECIFIED CIRRHOSIS OF LIVER Qualifiers: Hepatic cirrhosis type: alcoholic cirrhosis (2) Alcoholic liver damage Code(s): K70.9 - ALCOHOLIC LIVER DISEASE, UNSPECIFIED (3) Thrombocytopenia Code(s): D69.6 - THROMBOCYTOPENIA, UNSPECIFIED (4) Alcohol abuse Code(s): F10.10 - ALCOHOL ABUSE, UNCOMPLICATED (5) Dehydration Code(s): E86.0 - DEHYDRATION
[2018-12-20] MEDS ORDERED: PHYTONADIONE 10 MG/1 ML AMP SQ ONE (11:35)
--- NOTE | 2018-12-20 12:00 | PN ---
Progress Note, Physician History of Present Illness: jessie more awake and alert says he feels better mother in the room - Current Medication List Current Medications: Active Medications Chlordiazepoxide HCl (Librium -) 10 mg PO Q12H PRN PRN Reason: Signs/symptoms of Withdrawal Stop: 12/20/18 23:59 Last Admin: 12/20/18 10:49 Dose: 10 mg Chlordiazepoxide HCl (Librium -) 10 mg PO Q8H [facility] Stop: 12/20/18 21:01 Last Admin: 12/20/18 05:51 Dose: 10 mg Chlordiazepoxide HCl (Librium -) 10 mg PO ONCE ONE Stop: 12/21/18 05:01 Ergocalciferol (Drisdol Oral Solution -) 8,000 units PO DAILY [facility] Last Admin: 12/19/18 14:11 Dose: 8,000 units Dextrose/Sodium Chloride (Dextrose 5%-Normal Saline+20 Meq Kcl -) 20 meq in 1, 000 mls @ 100 mls/hr IV ASDIR [facility] Last Admin: 12/19/18 17:20 Dose: 100 mls/hr Piperacillin Sod/Tazobactam (Sod 4.5 gm/ Dextrose) 100 mls @ 200 mls/hr IVPB Q8H-IV [facility]; Protocol Ibuprofen (Caldolor Injection -) 600 mg IVPB Q6H PRN PRN Reason: FEVER Last Admin: 12/19/18 11:02 Dose: 600 mg Lorazepam (Ativan Injection -) 2 mg IVPUSH TID PRN PRN Reason: WITHDRAWAL(CONT SUBST) Last Admin: 12/20/18 01:01 Dose: 2 mg Magnesium Chloride (Slow-Mag -) 64 mg PO DAILY [facility] Last Admin: 12/19/18 14:12 Dose: 64 mg Multivitamins/Minerals/Vitamin C (Tab-A-Vit -) 1 tab PO DAILY [facility] Last Admin: 12/20/18 10:50 Dose: 1 tab Ondansetron HCl (Zofran Injection) 4 mg IVPUSH Q4H PRN PRN Reason: NAUSEA AND/OR VOMITING Pentoxifylline (Trental -) 400 mg PO TIDCM [facility] Last Admin: 12/20/18 10:50 Dose: 400 mg Potassium Phos/Sodium Phos (Phos-Nak Packet -) 1 packet PO TID [facility] Stop: 12/21/18 06:01 Last Admin: 12/20/18 05:52 Dose: 1 packet - Objective Vital Signs: Vital Signs Temperature 97.4 F L 12/20/18 09:00 Pulse Rate 110 H 12/20/18 09:00 Respiratory Rate 20 12/20/18 09:00 Blood Pressure 121/66 12/20/18 09:00 O2 Sat by Pulse Oximetry (%) 100 12/20/18 09:00 Constitutional: Yes: No Distress, Calm Cardiovascular: Yes: S1, S2 Respiratory: Yes: Regular, CTA Bilaterally Gastrointestinal: Yes: Normal Bowel Sounds, Soft Musculoskeletal: Yes: WNL Extremities: Yes: WNL Labs: CBC, BMP 12/20/18 06:15 12/20/18 06:15 INR, PTT INR 2.12 (0.83-1.09) H 12/20/18 06:15 Fibrinogen 246.0 mg/dL (238-498) 12/18/18 06:30 Assessment/Plan roblem List - Problems (1) Fever Code(s): R50.9 - FEVER, UNSPECIFIED (2) Electrolyte and fluid disorder Code(s): E87.8 - OTH DISORDERS OF ELECTROLYTE AND FLUID BALANCE, NEC (3) Alcoholic liver damage Code(s): K70.9 - ALCOHOLIC LIVER DISEASE, UNSPECIFIED (4) Cirrhosis Code(s): K74.60 - UNSPECIFIED CIRRHOSIS OF LIVER Qualifiers: Hepatic cirrhosis type: alcoholic cirrhosis (5) Thrombocytopenia Code(s): D69.6 - THROMBOCYTOPENIA, UNSPECIFIED plan continue to monitor rest as per the team hydration
--- NOTE | 2018-12-20 12:51 | PN ---
Progress Note, Physician Chief Complaint: Less tremor More awake History of Present Illness: Patient was seen and examined. Awake and alert. Chart was reviewed Denies chest pain, SOB or palpitations - Current Medication List Current Medications: Active Medications Chlordiazepoxide HCl (Librium -) 10 mg PO Q12H PRN PRN Reason: Signs/symptoms of Withdrawal Stop: 12/20/18 23:59 Last Admin: 12/20/18 10:49 Dose: 10 mg Chlordiazepoxide HCl (Librium -) 10 mg PO Q8H [facility] Stop: 12/20/18 21:01 Last Admin: 12/20/18 05:51 Dose: 10 mg Chlordiazepoxide HCl (Librium -) 10 mg PO ONCE ONE Stop: 12/21/18 05:01 Ergocalciferol (Drisdol Oral Solution -) 8,000 units PO DAILY [facility] Last Admin: 12/19/18 14:11 Dose: 8,000 units Dextrose/Sodium Chloride (Dextrose 5%-Normal Saline+20 Meq Kcl -) 20 meq in 1, 000 mls @ 100 mls/hr IV ASDIR [facility] Last Admin: 12/19/18 17:20 Dose: 100 mls/hr Ibuprofen (Caldolor Injection -) 600 mg IVPB Q6H PRN PRN Reason: FEVER Last Admin: 12/19/18 11:02 Dose: 600 mg Magnesium Chloride (Slow-Mag -) 64 mg PO DAILY [facility] Last Admin: 12/19/18 14:12 Dose: 64 mg Multivitamins/Minerals/Vitamin C (Tab-A-Vit -) 1 tab PO DAILY [facility] Last Admin: 12/20/18 10:50 Dose: 1 tab Ondansetron HCl (Zofran Injection) 4 mg IVPUSH Q4H PRN PRN Reason: NAUSEA AND/OR VOMITING Pentoxifylline (Trental -) 400 mg PO TIDCM [facility] Last Admin: 12/20/18 10:50 Dose: 400 mg Potassium Phos/Sodium Phos (Phos-Nak Packet -) 1 packet PO TID [facility] Stop: 12/21/18 06:01 Last Admin: 12/20/18 05:52 Dose: 1 packet - Objective Vital Signs: Vital Signs Temperature 97.4 F L 12/20/18 09:00 Pulse Rate 110 H 12/20/18 09:00 Respiratory Rate 20 12/20/18 09:00 Blood Pressure 121/66 12/20/18 09:00 O2 Sat by Pulse Oximetry (%) 100 12/20/18 09:00 Eyes: Yes: PERRL HENT: Yes: Atraumatic Neck: Yes: Supple Cardiovascular: Yes: Regular Rate and Rhythm, Tachycardia, S1, S2 Respiratory: Yes: CTA Bilaterally Gastrointestinal: Yes: Normal Bowel Sounds, Soft. No: Tenderness Edema: No Additional Findings/Remarks: - Review of Systems Constitutional: denies: Chills, Fever Cardiovascular: denies: Chest Pain, Palpitations, Shortness of Breath Respiratory: denies: Cough, Hemoptysis, Orthopnea, PND, SOB, SOB on Exertion Gastrointestinal: reports: Vomiting, Vomiting Blood. denies: Abdominal Pain, Constipation, Diarrhea, Melena, Nausea, Rectal Bleeding Musculoskeletal: denies: Back Pain, Joint Pain Neurological: denies: Dizziness, Headache, Seizure, Syncope Labs: CBC, BMP 12/20/18 06:15 12/20/18 06:15 INR, PTT INR 2.12 (0.83-1.09) H 12/20/18 06:15 Fibrinogen 246.0 mg/dL (238-498) 12/18/18 06:30 Problem List - Problems (1) Alcoholic liver damage Code(s): K70.9 - ALCOHOLIC LIVER DISEASE, UNSPECIFIED (2) Cirrhosis Code(s): K74.60 - UNSPECIFIED CIRRHOSIS OF LIVER Qualifiers: Hepatic cirrhosis type: alcoholic cirrhosis (3) Thrombocytopenia Code(s): D69.6 - THROMBOCYTOPENIA, UNSPECIFIED (4) Transaminitis Code(s): R74.0 - NONSPEC ELEV OF LEVELS OF TRANSAMNS & LACTIC ACID DEHYDRGNSE (5) Alcohol abuse Code(s): F10.10 - ALCOHOL ABUSE, UNCOMPLICATED (6) Non-cardiac chest pain Code(s): R07.89 - OTHER CHEST PAIN Assessment/Plan 1. ETOH intoxication 2. Abnormal LFT and thrombocytopenia due to ETOH abuse and cirrhosis 3. Abnormal ECG 4. Elevated INR 5. Hyponatremia PLAN: 1. Detox and monitor for withdrawl 2. Consider Vitamin K for elevated INR 3. GI protection with PPI 4. Monitor LFT and platelet.Monitor NA 5. Echocardiography was reviewed Further plans are to follow Guevara Ríos MD
--- NOTE | 2018-12-20 14:13 | PN ---
Progress Note (short form) - Note Progress Note: Renal follow up for electrolyte disturbances Seen and examined at the bedside awake and alert feels better tolerating oral diet on IVF making urine no chest pain, sob, fever or chills Vital Signs Temperature 97.4 F L 12/20/18 09:00 Pulse Rate 110 H 12/20/18 09:00 Respiratory Rate 20 12/20/18 09:00 Blood Pressure 121/66 12/20/18 09:00 O2 Sat by Pulse Oximetry (%) 100 12/20/18 09:00 Intake & Output 12/17/18 12/18/18 12/19/18 12/20/18 23:59 23:59 23:59 23:59 Intake Total 1468.2 2148.8 1265.6 100 Output Total 566 974 6689 Balance 1268.2 1748.8 1265.6 -1300 Weight 67.132 kg NAD awake and alert neck supple RRR CTA no LE edema CBC, BMP 12/20/18 06:15 12/20/18 06:15 Laboratory Tests 12/20/18 06:15 Calcium 8.0 L Phosphorus 2.0 L Magnesium 1.7 L Albumin 2.9 L Current Medications Chlordiazepoxide HCl (Librium -) 10 mg PO Q12H PRN PRN Reason: Signs/symptoms of Withdrawal Stop: 12/20/18 23:59 Last Admin: 12/20/18 10:49 Dose: 10 mg Chlordiazepoxide HCl (Librium -) 10 mg PO Q8H [facility] Stop: 12/20/18 21:01 Last Admin: 12/20/18 13:16 Dose: 10 mg Chlordiazepoxide HCl (Librium -) 10 mg PO ONCE ONE Stop: 12/21/18 05:01 Ergocalciferol (Drisdol Oral Solution -) 8,000 units PO DAILY [facility] Last Admin: 12/20/18 10:15 Dose: 8,000 units Dextrose/Sodium Chloride (Dextrose 5%-Normal Saline+20 Meq Kcl -) 20 meq in 1, 000 mls @ 100 mls/hr IV ASDIR [facility] Last Admin: 12/19/18 17:20 Dose: 100 mls/hr Ibuprofen (Caldolor Injection -) 600 mg IVPB Q6H PRN PRN Reason: FEVER Last Admin: 12/19/18 11:02 Dose: 600 mg Magnesium Chloride (Slow-Mag -) 64 mg PO DAILY [facility] Last Admin: 12/20/18 10:15 Dose: 64 mg Multivitamins/Minerals/Vitamin C (Tab-A-Vit -) 1 tab PO DAILY [facility] Last Admin: 12/20/18 10:50 Dose: 1 tab Ondansetron HCl (Zofran Injection) 4 mg IVPUSH Q4H PRN PRN Reason: NAUSEA AND/OR VOMITING Pentoxifylline (Trental -) 400 mg PO TIDCM [facility] Last Admin: 12/20/18 13:16 Dose: 400 mg Potassium Phos/Sodium Phos (Phos-Nak Packet -) 1 packet PO TID [facility] Stop: 12/21/18 06:01 Last Admin: 12/20/18 05:52 Dose: 1 packet 33 year old gentleman with history of asthma and alcohol abuse who presented with N/V and hematemesis and noted to have hypophosphatemia, hypomagnesemia, and hypokalemia. 1. Hypophosphatemia 2. Hypomagnesemia 3. Hyponatremia (hypovolveimc) 4. ETOH abuse 5. Alcohol withdrawal 6. Hematemesis 7. Thrombocytopenia from alcohol Phos is improved, continue oral neutraphos Continue Ergocalciferol 8000 units daily Continue Oral Slo-Mg 64mg Daily Oral solute intake as tolerated decrease rate of IVF continue ETOH withdrawal protocol Omar Guidry DO
[2018-12-20] MEDS: D5-NS + 20 MEQ KCL - 20 MEQ/1,000 ML INFUS.BAG IV SCH (15:11)
--- NOTE | 2018-12-20 18:14 | PN.GI ---
GI Progress Note Subjective: No acute events Awake, alert, mother present at bedside States feeling better - Objective Vital Signs: Vital Signs Temperature 97.8 F 12/20/18 14:25 Pulse Rate 109 H 12/20/18 14:25 Respiratory Rate 18 12/20/18 14:25 Blood Pressure 100/58 L 12/20/18 14:25 O2 Sat by Pulse Oximetry (%) 100 12/20/18 09:00 Constitutional: Calm Eyes: Yes: Sclera Icterus Cardiovascular: Yes: Tachycardia Respiratory: Yes: Diminished (at bases bilaterally) Gastrointestinal Inspection: No: Distention Edema: No Neurological: Yes: Alert, Oriented (x 3), Tremors Labs: CBC, BMP 12/20/18 06:15 12/20/18 06:15 INR, PTT INR 2.12 (0.83-1.09) H 12/20/18 06:15 Fibrinogen 246.0 mg/dL (238-498) 12/18/18 06:30 Problem List - Problems (1) Alcoholic liver damage Assessment/Plan: Acute decompensation, possibly with underlying chronic liver disease despite young age. While patient without leukocytosis, alcoholic hepatitis still needs to be considered in differential D/C'd trental. Unclear benefit in setting of alcoholic hepatitis Monitor LFTs. If continued rise in Bili / INR, will consider trial of prednisolone and transfer to liver center could be considered. Monitor Lytes Withdrawal precautions and treatment per primary team Endoscopy when clinically improved from alcohol withdrawal standpoint. Guarded prognosis at this point. explained to patient and his mother. Code(s): K70.9 - ALCOHOLIC LIVER DISEASE, UNSPECIFIED
[2018-12-20] MEDS: LACTULOSE 20 GM/30 ML UDC (FOR ORAL USE ONLY) PO SCH (21:51)
[2018-12-20 22:09] LABS: HEMOGLOBIN 11.4 GM/dL (11.7-16.9); MCH 36.1 pg (25.7-33.7); MCHC 34.4 g/dl (32.0-35.9); MEAN PLT VOLUME 9.7 fl (7.5-11.1); PLATELET COUNT 45 K/MM3 (134-434); RBC 3.14 M/mm3 (4.00-5.60); RDW 13.1 % (11.9-15.9); WHITE BLOOD COUNT 8.7 K/mm3 (4.0-10.0)
[2018-12-21 03:08] LABS: FIBROSIS SCORE. 0.99 (0.00-0.21); HCV ALPHA 2 MACRO CHART 251 mg/dL (110-276); NECRO.INFLAM ACT.SCORE 0.54 (0.00-0.17); NECROINFLAM. ACTIVITY GRADE A2-Moderate activity (.)
[2018-12-21] MEDS ORDERED: chlordiazePOXIDE HCL 10 MG CAPSULE PO ONE (05:00)
[2018-12-21] MEDS ORDERED: chlordiazePOXIDE 5 MG CAPSULE ONE ×2 (05:33)
[2018-12-21] MEDS: NAPH,MB-DB/K PH,MBDB POWDER PACKET PO SCH (05:44)
[2018-12-21 06:22] LABS: BASO % 0.6 % (0-2.0); EOS % 0.3 % (0-4.5); HEMATOCRIT 34.2 % (35.4-49); LYMPH % 5.6 % (8-40); MCH 36.8 pg (25.7-33.7); MEAN CELL VOLUME 105.2 fl (80-96); MEAN PLT VOLUME 8.7 fl (7.5-11.1); MONO % 14.9 % (3.8-10.2); NEUT % 78.6 % (42.8-82.8); PLATELET COUNT 54 K/MM3 (134-434); RBC 3.25 M/mm3 (4.00-5.60); RDW 13.1 % (11.9-15.9); WHITE BLOOD COUNT 8.2 K/mm3 (4.0-10.0)
[2018-12-21 06:43] LABS: INR 2.39 (0.83-1.09); PROTHROMBIN TIME (PATIENT) 28.5 SEC (9.7-13.0)
[2018-12-21 07:13] LABS: BLOOD UREA NITROGEN 4.4 mg/dL (7-18); CREATININE 0.4 mg/dL (0.55-1.3)
[2018-12-21 07:14] LABS: ALBUMIN 2.9 g/dl (3.4-5.0); CALCIUM 8.4 mg/dL (8.5-10.1); MAGNESIUM 1.5 mg/dL (1.8-2.4); PHOSPHOROUS 2.7 mg/dL (2.5-4.9); POTASSIUM 3.4 mmol/L (3.5-5.1); TOT PROT 6.8 g/dl (6.4-8.2)
[2018-12-21 07:17] LABS: BILIRUBIN,TOTAL 15.1 mg/dL (0.2-1)
[2018-12-21] MEDS ORDERED: POTASSIUM CHLORIDE TABS 20 MEQ TABLET.ER (FP) PO ONE (08:37)
[2018-12-21] MEDS ORDERED: MAGNESIUM SULF 50% (8.12 MEQ/2 ML-1 GM VIAL) IVPB ONE (08:38)
[2018-12-21 10:30] LABS: ANISOCYTOSIS 0; MACROCYTOSIS 1+; OVALOCYTE 1+; PLATELET ESTIMATE DECREASED
[2018-12-21] MEDS: LACTULOSE 20 GM/30 ML UDC (FOR ORAL USE ONLY) PO SCH (10:50)
[2018-12-21] MEDS: MAGNESIUM CL 64 MG TABLET.SA PO SCH (10:55)
[2018-12-21] MEDS: MULTIVITAMINS (DAILY MVI) TABLET (FP) PO SCH (10:56)
[2018-12-21] MEDS: ERGOCALCIFEROL 8,000 UNITS/ML DROPSBTL PO SCH (10:56)
--- NOTE | 2018-12-21 11:05 | PN ---
Progress Note (short form) - Note Progress Note: Pt examined in tele Tremulous-- decreased no further vomiting no abdominal pain no distress Vital Signs - 24 hr 12/20/18 12/20/18 12/20/18 14:25 21:00 23:00 Temperature 97.8 F 99.9 F H Pulse Rate 109 H 110 H Respiratory 18 20 Rate Blood Pressure 100/58 L 117/60 O2 Sat by Pulse 100 Oximetry (%) 12/21/18 12/21/18 05:46 08:19 Temperature 98.1 F Pulse Rate 95 H Respiratory 18 18 Rate Blood Pressure 128/76 O2 Sat by Pulse 100 Oximetry (%) Current Medications Generic Name Dose Route Start Last Admin Trade Name Freq PRN Reason Stop Dose Admin Ergocalciferol 8,000 units 12/19/18 12:00 12/21/18 10:56 Drisdol Oral Solution - PO 8,000 units DAILY [facility] Administration Dextrose/Sodium Chloride 20 meq in 1,000 mls @ 75 mls/hr 12/20/18 14:13 12/20 15:11 Dextrose 5%-Normal Saline+20 Meq Kcl - IV 75 mls/hr ASDIR [facility] Administration Ibuprofen 600 mg 12/17/18 15:43 12/19/18 11:02 Caldolor Injection - IVPB 600 mg Q6H PRN Administration FEVER Lactulose 30 gm 12/20/18 18:30 12/21/18 10:50 Cephulac (Oral Use) PO 30 gm DAILY [facility] Administration Magnesium Chloride 64 mg 12/19/18 11:45 12/21/18 10:55 Slow-Mag - PO 64 mg DAILY [facility] Administration Multivitamins/Minerals/Vitamin C 1 tab 12/18/18 10:00 12/21/18 10:56 Tab-A-Vit - PO 1 tab DAILY [facility] Administration Ondansetron HCl 4 mg 12/17/18 12:50 Zofran Injection IVPUSH Q4H PRN NAUSEA AND/OR VOMITING Laboratory Results - last 24 hr 12/17/18 12/20/18 12/21/18 08:47 21:00 05:55 WBC 8.7 8.2 RBC 3.14 L 3.25 L Hgb 11.4 L 12.0 Hct 33.0 L 34.2 L MCV 105.0 H 105.2 H MCH 36.1 H 36.8 H MCHC 34.4 35.0 RDW 13.1 13.1 Plt Count 45 L 54 L MPV 9.7 8.7 D Absolute Neuts (auto) 6.5 Neutrophils % 78.6 Lymphocytes % 5.6 L D Monocytes % 14.9 H Eosinophils % 0.3 D Basophils % 0.6 Nucleated RBC % 0 PT with INR INR Sodium Potassium Chloride Carbon Dioxide Anion Gap BUN Creatinine Est GFR (CKD-EPI)AfAm Est GFR (CKD-EPI)NonAf Random Glucose Calcium Phosphorus Magnesium Total Bilirubin AST ALT Alkaline Phosphatase Liver GGT 955 H Liver Total Bilirubin 4.7 H Liver Fibrosis ALT 51 Liver Haptoglobin < 10 L Liver Fibrosis Score 0.99 H Necroinflammator Score 0.54 H Necroinflam Pat Score Necroinflammator Grade A2-moderate activity Total Protein Albumin Apolipoprotein A-1 81 L Liver Fibrosis Comment Liver Fibrosis Limits Liver Fibrosis Interp 12/21/18 12/21/18 05:55 05:55 WBC RBC Hgb Hct MCV MCH MCHC RDW Plt Count MPV Absolute Neuts (auto) Neutrophils % Lymphocytes % Monocytes % Eosinophils % Basophils % Nucleated RBC % PT with INR 28.50 H INR 2.39 H Sodium 134 L Potassium 3.4 L Chloride 102 Carbon Dioxide 23 Anion Gap 8 BUN 4.4 L Creatinine 0.4 L Est GFR (CKD-EPI)AfAm 182.15 Est GFR (CKD-EPI)NonAf 157.16 Random Glucose 132 H Calcium 8.4 L Phosphorus 2.7 Magnesium 1.5 L Total Bilirubin 15.1 H* D AST 83 H ALT 44 Alkaline Phosphatase 119 H Liver GGT Liver Total Bilirubin Liver Fibrosis ALT Liver Haptoglobin Liver Fibrosis Score Necroinflammator Score Necroinflam Pat Score Necroinflammator Grade Total Protein 6.8 Albumin 2.9 L Apolipoprotein A-1 Liver Fibrosis Comment Liver Fibrosis Limits Liver Fibrosis Interp S1 S2 RRR Lungs decreased abd-- hepatomegaly+ Ext -- tremors+, no edema petechiae+ icteric++ PLAN Alcohol withdrawal Cirrhosis Thrombocytopenia -- on Librium protocol --Octreotide gtt dc -- replace lytes -- dc motrin -- need vit K -- GI eval appreciated -- dc zofran -- monitor labs -- prognosis guarded -- worsening liver function ->>coagulopathic, elevated bilirubin -- spoke to the [facility]-- have initiated transfer process Problem List - Problems (1) Cirrhosis Code(s): K74.60 - UNSPECIFIED CIRRHOSIS OF LIVER Qualifiers: Hepatic cirrhosis type: alcoholic cirrhosis (2) Alcoholic liver damage Code(s): K70.9 - ALCOHOLIC LIVER DISEASE, UNSPECIFIED (3) Thrombocytopenia Code(s): D69.6 - THROMBOCYTOPENIA, UNSPECIFIED (4) Alcohol abuse Code(s): F10.10 - ALCOHOL ABUSE, UNCOMPLICATED (5) Dehydration Code(s): E86.0 - DEHYDRATION
[2018-12-21] MEDS ORDERED: PHYTONADIONE 10 MG/1 ML AMP IVPB ONE (11:15)
--- NOTE | 2018-12-21 11:41 | PN ---
Progress Note, Physician Chief Complaint: no new issues - Current Medication List Current Medications: Active Medications Ergocalciferol (Drisdol Oral Solution -) 8,000 units PO DAILY [facility] Last Admin: 12/21/18 10:56 Dose: 8,000 units Dextrose/Sodium Chloride (Dextrose 5%-Normal Saline+20 Meq Kcl -) 20 meq in 1, 000 mls @ 75 mls/hr IV ASDIR [facility] Last Admin: 12/20/18 15:11 Dose: 75 mls/hr Ibuprofen (Caldolor Injection -) 600 mg IVPB Q6H PRN PRN Reason: FEVER Last Admin: 12/19/18 11:02 Dose: 600 mg Lactulose (Cephulac (Oral Use)) 30 gm PO DAILY [facility] Last Admin: 12/21/18 10:50 Dose: 30 gm Magnesium Chloride (Slow-Mag -) 64 mg PO DAILY [facility] Last Admin: 12/21/18 10:55 Dose: 64 mg Multivitamins/Minerals/Vitamin C (Tab-A-Vit -) 1 tab PO DAILY [facility] Last Admin: 12/21/18 10:56 Dose: 1 tab Ondansetron HCl (Zofran Injection) 4 mg IVPUSH Q4H PRN PRN Reason: NAUSEA AND/OR VOMITING - Objective Vital Signs: Vital Signs Temperature 98.1 F 12/21/18 05:46 Pulse Rate 95 H 12/21/18 05:46 Respiratory Rate 18 12/21/18 08:19 Blood Pressure 128/76 12/21/18 05:46 O2 Sat by Pulse Oximetry (%) 100 12/21/18 08:19 Constitutional: Yes: No Distress, Calm Cardiovascular: Yes: S1, S2 Respiratory: Yes: Regular, CTA Bilaterally Musculoskeletal: Yes: WNL Extremities: Yes: WNL Labs: CBC, BMP 12/21/18 05:55 12/21/18 05:55 INR, PTT INR 2.39 (0.83-1.09) H 12/21/18 05:55 Fibrinogen 246.0 mg/dL (238-498) 12/18/18 06:30 Assessment/Plan roblem List - Problems (1) Fever Code(s): R50.9 - FEVER, UNSPECIFIED (2) Electrolyte and fluid disorder Code(s): E87.8 - OTH DISORDERS OF ELECTROLYTE AND FLUID BALANCE, NEC (3) Alcoholic liver damage Code(s): K70.9 - ALCOHOLIC LIVER DISEASE, UNSPECIFIED (4) Cirrhosis Code(s): K74.60 - UNSPECIFIED CIRRHOSIS OF LIVER Qualifiers: Hepatic cirrhosis type: alcoholic cirrhosis (5) Thrombocytopenia Code(s): D69.6 - THROMBOCYTOPENIA, UNSPECIFIED plan continue to monitor rest as per the team hydration
[2018-12-21] MEDS ORDERED: chlordiazePOXIDE HCL 25 MG CAPSULE PO PRN (11:49)
[2018-12-21] MEDS ORDERED: LORazepam 2 MG/ML SDV VIAL IVPUSH PRN (11:49)
--- NOTE | 2018-12-21 12:18 | PN ---
Progress Note, Physician History of Present Illness: Denies chest pain, SOB or palpitations, not tremulous. - Current Medication List Current Medications: Active Medications Chlordiazepoxide HCl (Librium -) 25 mg PO Q4H PRN PRN Reason: WITHDRAWAL(CONT SUBST) Ergocalciferol (Drisdol Oral Solution -) 8,000 units PO DAILY [facility] Last Admin: 12/21/18 10:56 Dose: 8,000 units Dextrose/Sodium Chloride (Dextrose 5%-Normal Saline+20 Meq Kcl -) 20 meq in 1, 000 mls @ 75 mls/hr IV ASDIR [facility] Last Admin: 12/20/18 15:11 Dose: 75 mls/hr Ibuprofen (Caldolor Injection -) 600 mg IVPB Q6H PRN PRN Reason: FEVER Last Admin: 12/19/18 11:02 Dose: 600 mg Lactulose (Cephulac (Oral Use)) 30 gm PO DAILY [facility] Last Admin: 12/21/18 10:50 Dose: 30 gm Lorazepam (Ativan Injection -) 2 mg IVPUSH Q6H PRN PRN Reason: ANXIETY Magnesium Chloride (Slow-Mag -) 64 mg PO DAILY [facility] Last Admin: 12/21/18 10:55 Dose: 64 mg Multivitamins/Minerals/Vitamin C (Tab-A-Vit -) 1 tab PO DAILY [facility] Last Admin: 12/21/18 10:56 Dose: 1 tab Ondansetron HCl (Zofran Injection) 4 mg IVPUSH Q4H PRN PRN Reason: NAUSEA AND/OR VOMITING - Objective Vital Signs: Vital Signs Temperature 98.1 F 12/21/18 05:46 Pulse Rate 95 H 12/21/18 05:46 Respiratory Rate 18 12/21/18 08:19 Blood Pressure 128/76 12/21/18 05:46 O2 Sat by Pulse Oximetry (%) 100 12/21/18 08:19 Constitutional: Yes: No Distress, Calm Neck: Yes: Supple Cardiovascular: Yes: Regular Rate and Rhythm Respiratory: Yes: Regular, CTA Bilaterally Gastrointestinal: Yes: Normal Bowel Sounds, Soft Edema: No Integumentary: Yes: Jaundice Labs: CBC, BMP 12/21/18 05:55 12/21/18 05:55 INR, PTT INR 2.39 (0.83-1.09) H 12/21/18 05:55 Fibrinogen 246.0 mg/dL (238-498) 12/18/18 06:30 Problem List - Problems (1) Alcoholic liver damage Code(s): K70.9 - ALCOHOLIC LIVER DISEASE, UNSPECIFIED (2) Cirrhosis Code(s): K74.60 - UNSPECIFIED CIRRHOSIS OF LIVER Qualifiers: Hepatic cirrhosis type: alcoholic cirrhosis (3) Electrolyte and fluid disorder Code(s): E87.8 - OTH DISORDERS OF ELECTROLYTE AND FLUID BALANCE, NEC (4) Hepatitis Code(s): K75.9 - INFLAMMATORY LIVER DISEASE, UNSPECIFIED (5) Thrombocytopenia Code(s): D69.6 - THROMBOCYTOPENIA, UNSPECIFIED (6) Transaminitis Code(s): R74.0 - NONSPEC ELEV OF LEVELS OF TRANSAMNS & LACTIC ACID DEHYDRGNSE (7) Alcohol abuse Code(s): F10.10 - ALCOHOL ABUSE, UNCOMPLICATED Assessment/Plan 12/20/2018 Abd US: Cirrhosis 12/19/2018 Echo: Normal LV and RV size and fxn LVEF 55-60%, mild MR, TR, tr AR 1. ETOH intoxication 2. Abnormal LFT and thrombocytopenia due to ETOH abuse and cirrhosis 3. Abnormal ECG 4. Elevated INR 5. Hyponatremia PLAN: 1. Detox and monitor for withdrawal 2. Consider Vitamin K for elevated INR 3. GI protection with PPI 4. Monitor LFT and platelet. Monitor NA 5. Plan for transfer to [facility]
--- NOTE | 2018-12-21 12:41 | DS ---
Physical Examination Vital Signs: Vital Signs Temperature 98.1 F 12/21/18 05:46 Pulse Rate 95 H 12/21/18 05:46 Respiratory Rate 18 12/21/18 08:19 Blood Pressure 128/76 12/21/18 05:46 O2 Sat by Pulse Oximetry (%) 100 12/21/18 08:19 Constitutional: Yes: Moderate Distress Eyes: Yes: Sclera Icterus Cardiovascular: Yes: Regular Rate and Rhythm Respiratory: Yes: CTA Bilaterally Gastrointestinal: Yes: Normal Bowel Sounds, Soft, Hepatomegaly. No: Tenderness Edema: No Neurological: Yes: Alert, Oriented, Tremors Psychiatric: Yes: Alert, Oriented Labs: CBC, BMP 12/21/18 05:55 12/21/18 05:55 Discharge Summary Problems reviewed: Yes Reason For Visit: ALCOHOL ABUSE, JAUNDICE, THROMBOCYTOPENIA Current Active Problems Alcoholic liver damage (Acute) Cirrhosis (Acute) Electrolyte and fluid disorder (Acute) Fever (Acute) Hepatitis (Acute) Thrombocytopenia (Acute) Transaminitis (Acute) Hospital Course: 33 yrs old male admitted to [facility] for hemetemesis-- alcohol detox- was found to be in acute withdrawal-- started on Librium protocol, Ativan as needed for withdrawal.He is a heavy drinker- lost his current job due to drinking-- lives with mother. He had abnormal LFT , elevated coags, thrombocytopenia Evaluated by GI ,Hematology, Renal GI-- did not give steroids due to bleeding episode-- was place don Octreotide drip and protonix drip-- discontinued yesterday-- emesis has stopped. GI did not feel this was alcohol hepatitis as his WBC and alk phos was not elevated. He has rising bilirubin , elevated coags despite giving Vit k Renal-- replacing electrolytes , on iv fluids containing potassium , placed on supplements for potassium, Phos and magnesium ID-- consulted for elevated temp-- had temp 101F on 12/19-- cultures came back negative-- was started on antibiotics but later discontinued by ID as his cultures and CXR were negative Hematology consulted for thrombocytopenia Cardiology consulted for elevated Qtc interval-- he is cleared from cardiology to dc telemetry today 'Abd ultrasound today--> liver cirrhosis, no acute cholecystitis Head ct ==on admission -- no acute pathology CT abd /pelvis-- >liver cirrhosis, hepatosplenomegaly , portal HTN ,abd varices Echo-- EF 55-60% Pt is being transferred to tertiary center for further management of liver dysfunction-->impending liver failure Condition: Stable - Instructions Disposition: TRANSFER ACUTE CARE/OTHER HOSP - Home Medications Comprehensive Discharge Medication List: Current Medications Generic Name Dose Route Start Last Admin Trade Name Freq PRN Reason Stop Dose Admin Chlordiazepoxide HCl 25 mg 12/21/18 11:49 Librium - PO Q4H PRN WITHDRAWAL(CONT SUBST) Ergocalciferol 8,000 units 12/19/18 12:00 12/21/18 10:56 Drisdol Oral Solution - PO 8,000 units DAILY [facility] Administration Dextrose/Sodium Chloride 20 meq in 1,000 mls @ 75 mls/hr 12/20/18 14:13 12/20 15:11 Dextrose 5%-Normal Saline+20 Meq Kcl - IV 75 mls/hr ASDIR [facility] Administration Ibuprofen 600 mg 12/17/18 15:43 12/19/18 11:02 Caldolor Injection - IVPB 600 mg Q6H PRN Administration FEVER Lactulose 30 gm 12/20/18 18:30 12/21/18 10:50 Cephulac (Oral Use) PO 30 gm DAILY [facility] Administration Lorazepam 2 mg 12/21/18 11:49 Ativan Injection - IVPUSH Q6H PRN ANXIETY Magnesium Chloride 64 mg 12/19/18 11:45 12/21/18 10:55 Slow-Mag - PO 64 mg DAILY [facility] Administration Multivitamins/Minerals/Vitamin C 1 tab 12/18/18 10:00 12/21/18 10:56 Tab-A-Vit - PO 1 tab DAILY [facility] Administration Ondansetron HCl 4 mg 12/17/18 12:50 Zofran Injection IVPUSH Q4H PRN NAUSEA AND/OR VOMITING
--- NOTE | 2018-12-21 13:06 | PN ---
Progress Note (short form) - Note Progress Note: With continued elevation in T bili and INR, agree with plan to transfer to [facility] at this time.
[2018-12-21] MEDS: D5-NS + 20 MEQ KCL - 20 MEQ/1,000 ML INFUS.BAG IV SCH (14:32)
--- NOTE | 2018-12-21 14:47 | PN ---
Progress Note (short form) - Note Progress Note: Renal follow up for electrolyte disturbances Seen and examined at the bedside no acute complaints no sob, cp, abd pain for transfer to tertiary care center Vital Signs Temperature 97.4 F L 12/20/18 09:00 Pulse Rate 110 H 12/20/18 09:00 Respiratory Rate 20 12/20/18 09:00 Blood Pressure 121/66 12/20/18 09:00 O2 Sat by Pulse Oximetry (%) 100 12/20/18 09:00 Intake & Output 12/17/18 12/18/18 12/19/18 12/20/18 23:59 23:59 23:59 23:59 Intake Total 1468.2 2148.8 1265.6 100 Output Total 061 120 4660 Balance 1268.2 1748.8 1265.6 -1300 Weight 67.132 kg NAD awake and alert neck supple RRR CTA no LE edema CBC, BMP 12/20/18 06:15 12/20/18 06:15 Laboratory Tests 12/20/18 06:15 Calcium 8.0 L Phosphorus 2.0 L Magnesium 1.7 L Albumin 2.9 L Current Medications Chlordiazepoxide HCl (Librium -) 10 mg PO Q12H PRN PRN Reason: Signs/symptoms of Withdrawal Stop: 12/20/18 23:59 Last Admin: 12/20/18 10:49 Dose: 10 mg Chlordiazepoxide HCl (Librium -) 10 mg PO Q8H [facility] Stop: 12/20/18 21:01 Last Admin: 12/20/18 13:16 Dose: 10 mg Chlordiazepoxide HCl (Librium -) 10 mg PO ONCE ONE Stop: 12/21/18 05:01 Ergocalciferol (Drisdol Oral Solution -) 8,000 units PO DAILY [facility] Last Admin: 12/20/18 10:15 Dose: 8,000 units Dextrose/Sodium Chloride (Dextrose 5%-Normal Saline+20 Meq Kcl -) 20 meq in 1, 000 mls @ 100 mls/hr IV ASDIR [facility] Last Admin: 12/19/18 17:20 Dose: 100 mls/hr Ibuprofen (Caldolor Injection -) 600 mg IVPB Q6H PRN PRN Reason: FEVER Last Admin: 12/19/18 11:02 Dose: 600 mg Magnesium Chloride (Slow-Mag -) 64 mg PO DAILY [facility] Last Admin: 12/20/18 10:15 Dose: 64 mg Multivitamins/Minerals/Vitamin C (Tab-A-Vit -) 1 tab PO DAILY [facility] Last Admin: 12/20/18 10:50 Dose: 1 tab Ondansetron HCl (Zofran Injection) 4 mg IVPUSH Q4H PRN PRN Reason: NAUSEA AND/OR VOMITING Pentoxifylline (Trental -) 400 mg PO TIDCM [facility] Last Admin: 12/20/18 13:16 Dose: 400 mg Potassium Phos/Sodium Phos (Phos-Nak Packet -) 1 packet PO TID [facility] Stop: 12/21/18 06:01 Last Admin: 12/20/18 05:52 Dose: 1 packet 33 year old gentleman with history of asthma and alcohol abuse who presented with N/V and hematemesis and noted to have hypophosphatemia, hypomagnesemia, and hypokalemia. 1. Hypophosphatemia 2. Hypomagnesemia 3. Hyponatremia (hypovolveimc) 4. ETOH abuse 5. Alcohol withdrawal 6. Hematemesis 7. Thrombocytopenia from alcohol 8. Liver dysfunction Phos is improved, continue oral neutraphos Continue Ergocalciferol 8000 units daily Continue Oral Slo-Mg 64mg Daily, give IV mag sulfate 2g IV today Oral solute intake as tolerated continue ETOH withdrawal protocol awaiting transfer to tertiary care center Omar Guidry DO
[2018-12-21] MEDS ORDERED: PT OWN MED DRAWER 7, Y5N ONE (17:01)
--- NOTE | 2018-12-21 18:05 | PN ---
Progress Note (short form) - Note Progress Note: Patient seen and examined Grossly icteric No active bleeding Petechiae extremities Last Vital Signs Temp Pulse Resp BP Pulse Ox 99.4 F 106 H 20 121/68 100 12/21/18 13:00 12/21/18 13:00 12/21/18 13:00 12/21/18 13:00 12/21/18 08:19 HEENT: GERA, EOM Intact,icteric Oropharynx: No thrush, No mucositis Cor: RSR, No murmurs, No gallops Lungs: Clear to P&A Abd:Liver - 6 cm Ext:No significant edema Skin:petechiae CBC, BMP 12/21/18 05:55 12/21/18 05:55 Current Medications Generic Name Dose Route Start Last Admin Trade Name Freq PRN Reason Stop Dose Admin Chlordiazepoxide HCl 25 mg 12/21/18 11:49 Librium - PO Q4H PRN WITHDRAWAL(CONT SUBST) Ergocalciferol 8,000 units 12/19/18 12:00 12/21/18 10:56 Drisdol Oral Solution - PO 8,000 units DAILY [facility] Administration Dextrose/Sodium Chloride 20 meq in 1,000 mls @ 75 mls/hr 12/20/18 14:13 12/21 14:32 Dextrose 5%-Normal Saline+20 Meq Kcl - IV 75 mls/hr ASD[facility] Administration Ibuprofen 600 mg 12/17/18 15:43 12/19/18 11:02 Caldolor Injection - IVPB 600 mg Q6H PRN Administration FEVER Lactulose 30 gm 12/20/18 18:30 12/21/18 10:50 Cephulac (Oral Use) PO 30 gm DAILY [facility] Administration Lorazepam 2 mg 12/21/18 11:49 Ativan Injection - IVPUSH Q6H PRN ANXIETY Magnesium Chloride 64 mg 12/19/18 11:45 12/21/18 10:55 Slow-Mag - PO 64 mg DAILY [facility] Administration Multivitamins/Minerals/Vitamin C 1 tab 12/18/18 10:00 12/21/18 10:56 Tab-A-Vit - PO 1 tab DAILY [facility] Administration Ondansetron HCl 4 mg 12/17/18 12:50 Zofran Injection IVPUSH Q4H PRN NAUSEA AND/OR VOMITING Abnormal Lab Results 12/17/18 12/20/18 12/21/18 08:47 21:00 05:55 RBC 3.14 L 3.25 L Hgb 11.4 L Hct 33.0 L 34.2 L MCV 105.0 H 105.2 H MCH 36.1 H 36.8 H Plt Count 45 L 54 L Lymphocytes % 5.6 L D Monocytes % 14.9 H PT with INR INR Sodium Potassium BUN Creatinine Random Glucose Calcium Magnesium Total Bilirubin AST Alkaline Phosphatase Liver GGT 955 H Liver Total Bilirubin 4.7 H Liver Haptoglobin < 10 L Liver Fibrosis Score 0.99 H Necroinflammator Score 0.54 H Albumin Apolipoprotein A-1 81 L 12/21/18 12/21/18 05:55 05:55 RBC Hgb Hct MCV MCH Plt Count Lymphocytes % Monocytes % PT with INR 28.50 H INR 2.39 H Sodium 134 L Potassium 3.4 L BUN 4.4 L Creatinine 0.4 L Random Glucose 132 H Calcium 8.4 L Magnesium 1.5 L Total Bilirubin 15.1 H* D AST 83 H Alkaline Phosphatase 119 H Liver GGT Liver Total Bilirubin Liver Haptoglobin Liver Fibrosis Score Necroinflammator Score Albumin 2.9 L Apolipoprotein A-1 Impression: Unfortunate Rising Bilirubin Worsening INR Thrombocytopenia mildly improved which may be related to direct toxic effect of alcohol dissipating ( last ETOH- -5 days earlier) Intervention prn active bleeding
[2018-12-22 00:07] VITALS: BP 119/64; PULSE 110; TEMP 99.4
[2018-12-23 04:11] LABS: HCV ALPHA 2 MACRO CHART 285 mg/dL (110-276); NECRO.INFLAM ACT.SCORE 0.45 (0.00-0.17); NECROINFLAM. ACTIVITY GRADE A1-A2 (.)
== END 2018-12-21 22:30 | disposition short-term general hospital (02) | DRG 661 ==
LOC: JER 02:32 → JERBED 04:32 → J4W 10:57
PROVIDERS: ADMIT Internal Medicine; ATTEND Internal Medicine
PROC: 30233R1 Transfusion of Nonautologous Platelets into Peripheral Vein, Percutaneous Approach (ICD-10-PCS; principal; 2018-12-17)
DX: D69.6 Thrombocytopenia, unspecified (principal); K72.00 Acute and subacute hepatic failure without coma; R74.0 Nonspecific elevation of levels of transaminase and lactic acid dehydrogenase [LDH]; E83.39 Other disorders of phosphorus metabolism; E83.42 Hypomagnesemia; E87.1 Hypo-osmolality and hyponatremia; K92.0 Hematemesis; R50.9 Fever, unspecified; E86.0 Dehydration; K70.30 Alcoholic cirrhosis of liver without ascites; R16.2 Hepatomegaly with splenomegaly, not elsewhere classified; K70.10 Alcoholic hepatitis without ascites; E87.6 Hypokalemia; I85.10 Secondary esophageal varices without bleeding; F10.231 Alcohol dependence with withdrawal delirium
CPT/HCPCS: 36415; 36430; 36511; 70450-TC; 71045-TC-FY; 74177-TC; 76700-TC; 80053; 80307; 82172; 82272; 82607; 82746; 82977; 83010; 83540; 83550; 83690; 83735; 83883; 84100; 84132; 84460; 85025; 85027; 85384; 85610; 85730; 86704; 86706; 86707; 86708; 86709; 86850; 86900; 86901; 87040; 87086; 87340; 87350; 93005; 93010; 93306-TC; 99285-25; J7030; P9034; P9038

== ENCOUNTER 2019-05-16 23:36 | Emergency (ER) | payer OTHER ==
[2019-05-17 00:06] VITALS: BMI 21.7
[2019-05-17 00:55] LABS: HEMATOCRIT 35.1 % (35.4-49); HEMOGLOBIN 12.1 GM/dL (11.7-16.9); MCH 33.8 pg (25.7-33.7); MCHC 34.5 g/dl (32.0-35.9); MEAN PLT VOLUME 8.6 fl (7.5-11.1); RBC 3.58 M/mm3 (4.00-5.60); RDW 15.2 % (11.9-15.9); WHITE BLOOD COUNT 9.5 K/mm3 (4.0-10.0)
--- NOTE | 2019-05-17 00:57 | PDOC ---
Documentation entered by Cherri Simms SCRIBE, acting as scribe for Jennyfer Calderon MD. Jennyfer Calderon MD: This documentation has been prepared by the scribe, Cherri Simms SCRIBE, under my direction and personally reviewed by me in its entirety. I confirm that the documentation accurately reflects all work, treatment, procedures, and medical decision making performed by me. History of Present Illness - General Chief Complaint: Nasal Bleeding Stated Complaint: EPISTAXIS History Source: Patient Exam Limitations: No Limitations - History of Present Illness Initial Comments: 05/17/19 00:41 The patient is a 34-year-old male with a past medical history significant for Hepatitis, recently diagnosed Liver CA, cirrhosis, thrombocytopenia, alcoholism , and transaminitis who presents to the emergency department with epistaxis. The patient presents with 3 days of left-sided nasal bleeding, which he packed prior to arrival. The patient reports associated symptoms of chills and vomiting within the last week. Denies fever. Denies active vomiting. Allergies: NKA Social history: Denies prior use of tobacco. The patient reports his last alcohol use was 72 hours ago. Past History - Past Medical History Allergies/Adverse Reactions: Allergies Allergy/AdvReac Type Severity Reaction Status Date / Time No Known Allergies Allergy Verified 12/17/18 02:48 Home Medications: Ambulatory Orders Unobtainable 05/17/19 Asthma: Yes Cancer: Yes (liver) COPD: No - Immunization History Immunization Up to Date: Yes - Psycho Social/Smoking Cessation Hx Smoking Status: No Smoking History: Never smoked Have you smoked in the past 12 months: No Number of Cigarettes Smoked Daily: 0 Information on smoking cessation initiated: No Hx Alcohol Use: No Drug/Substance Use Hx: No Substance Use Type: None Hx Substance Use Treatment: No Review of Systems - Review of Systems Able to Perform ROS?: Yes Comments:: 05/17/19 00:43 CONSTITUTIONAL: +chills. Absent: fever, diaphoresis, generalized weakness, malaise, loss of appetite HEENT: +nasal bleeding. Absent: rhinorrhea, nasal congestion, throat pain, throat swelling, difficulty swallowing, mouth swelling, ear pain, eye pain, visual Changes CARDIOVASCULAR: Absent: chest pain, syncope, palpitations, irregular heart rate, lightheadedness , peripheral edema RESPIRATORY: Absent: cough, shortness of breath, dyspnea with exertion, orthopnea, wheezing, stridor, hemoptysis GASTROINTESTINAL: Vomiting, no active vomiting. Absent: abdominal pain, abdominal distension, nausea, diarrhea, constipation, melena, hematochezia GENITOURINARY: Absent: dysuria, frequency, urgency, hesitancy, hematuria, flank pain, genital pain MUSCULOSKELETAL: Absent: myalgia, arthralgia, joint swelling SKIN: Absent: rash, itching, pallor HEMATOLOGIC/IMMUNOLOGIC: +nasal bleeding. Absent: easy bruising, lymphadenopathy, frequent infections ENDOCRINE: Absent: unexplained weight gain, unexplained weight loss, heat intolerance, cold intolerance NEUROLOGIC: Absent: headache, focal weakness or paresthesias, dizziness, unsteady gait, seizure, mental status changes, bladder or bowel incontinence PSYCHIATRIC: Absent: anxiety, depression, suicidal or homicidal ideation, hallucinations. *Physical Exam - Vital Signs Last Vital Signs Temp Pulse Resp BP Pulse Ox 97.8 F 133 H 2 L 124/79 95 05/16/19 23:55 05/16/19 23:55 05/16/19 23:55 05/16/19 23:55 05/16/19 23:55 - Physical Exam 05/17/19 00:42 GENERAL: Thin, jaundiced and ill appearing 34 year old male, No apparent distress. HEENT: +icteric sclera, packed left nares prior to arrival. Normocephalic, atraumatic. PERRL, EOM intact. CARDIOVASCULAR: Tachycardic, sinus tachycardiac to 125. PULMONARY: Clear to auscultation bilaterally. ABDOMEN: Flat abdomen, Soft, non-distended, non-tender. EXTREMITIES: Normal ROM in all four extremities. No gross deformities. SKIN: psoriasis on the right hand. Warm, dry. No rash NEUROLOGICAL: Conversant, moving all extremities. No focal neurological deficits. ED Treatment Course - LABORATORY CBC & Chemistry Diagram: 05/17/19 00:45 05/17/19 00:45 Medical Decision Making - Medical Decision Making 05/17/19 00:54 34-year-old male with a history of alcoholism, liver cirrhosis recently diagnosed with liver cancer presents with 3 days of intermittent left nares bleeding. He packed his nose prior to arrival. He was seen here November 2018 for GI bleed and had a CAT scan at that time that showed liver cirrhosis, hepatosplenomegaly, portal hypertension and abdominal varices He had an echo that showed ejection fraction 55 to 60% He has a long history of thrombocytopenia He presents this evening tachycardic, jaundice 05/17/19 00:59 Platelets are 22,000 05/17/19 01:05 05/17/19 01:16 INR equal to 1.99 05/17/19 01:48 EKG is sinus tachycardia at 125 Repeat BP was 137/80, pulse = 118 05/17/19 02:07 Call placed to [facility] Case discussed with GI fellow Dr. Ocampo Case discussed with ER Dr. Dr. Diaz The patient accepted to the ED. Discharge - Discharge Information Problems reviewed: Yes Clinical Impression/Diagnosis: Alcoholic liver damage, Thrombocytopenia, Epistaxis, Transaminitis, Alcohol abuse Cirrhosis Qualifiers: Hepatic cirrhosis type: alcoholic cirrhosis Ascites presence: unspecified Qualified Code(s): K70.30 - Alcoholic cirrhosis of liver without ascites Condition: Fair Disposition: TRANSFER ACUTE CARE/OTHER HOSP - Follow up/Referral Referrals: Ghulam Barrios MD [Primary Care Provider] - - Patient Discharge Instructions - Post Discharge Activity - Transfer to Acute Care Facility Receiving Facility Name: [facility] Accepting Physician:: DR LEXY JORDAN
[2019-05-17 01:00] LABS: PLATELET COUNT 22 K/MM3 (134-434)
[2019-05-17 01:14] LABS: INR 1.99 (0.83-1.09); PROTHROMBIN TIME (PATIENT) 23.6 SEC (9.7-13.0)
[2019-05-17 01:17] LABS: ACTIVATED PTT 47.5 SECONDS (25.2-36.5)
[2019-05-17 01:31] LABS: ALBUMIN 3.2 g/dl (3.4-5.0); BILIRUBIN,TOTAL 5.7 mg/dL (0.2-1); BLOOD UREA NITROGEN 10.4 mg/dL (7-18); CALCIUM 8.1 mg/dL (8.5-10.1); CREATININE 0.5 mg/dL (0.55-1.3); POTASSIUM 3.6 mmol/L (3.5-5.1)
[2019-05-17 05:44] VITALS: BP 133/73; PULSE 115; TEMP 98.3
--- NOTE | 2019-05-17 16:38 | EKG ---
Test Reason : Blood Pressure : / mmHG Vent. Rate : 125 BPM Atrial Rate : 125 BPM P-R Int : 144 ms QRS Dur : 096 ms QT Int : 334 ms P-R-T Axes : 000 005 049 degrees QTc Int : 482 ms SINUS TACHYCARDIA OTHERWISE NORMAL ECG Confirmed by MD ROGE, MATEUS ([id number]) on 05/17/2019 4:37:48 PM Referred By: Confirmed By:MATEUS GUAN MD
== END 2019-05-17 03:17 | disposition short-term general hospital (02) ==
LOC: JER 23:36
DX: K70.30 Alcoholic cirrhosis of liver without ascites (principal); F10.20 Alcohol dependence, uncomplicated; C22.8 Malignant neoplasm of liver, primary, unspecified as to type; K75.9 Inflammatory liver disease, unspecified; D69.6 Thrombocytopenia, unspecified; R74.0 Nonspecific elevation of levels of transaminase and lactic acid dehydrogenase [LDH]; Y90.8 Blood alcohol level of 240 mg/100 ml or more
CPT/HCPCS: 36415; 80053; 80307; 85027; 85610; 85730; 86850; 86900; 86901; 93005; 93010; 99285-25

== ENCOUNTER 2020-07-12 06:33 | Inpatient (IN) | payer OTHER ==
[2020-07-12 08:11] LABS: BASO % 2.7 % (0-2.0); EOS % 1.6 % (0-4.5); HEMATOCRIT 44.9 % (35.4-49); HEMOGLOBIN 16.1 GM/dL (11.7-16.9); INR 2.34 (0.83-1.09); LYMPH % 28.9 % (8-40); MCH 34.4 pg (25.7-33.7); MCHC 35.9 g/dl (32.0-35.9); MEAN CELL VOLUME 95.8 fl (80-96); MEAN PLT VOLUME 8.9 fl (7.5-11.1); MONO % 10.8 % (3.8-10.2); PROTHROMBIN TIME (PATIENT) 27.6 SEC (9.7-13.0); RBC 4.69 M/mm3 (4.00-5.60); RDW 15.2 % (11.9-15.9); WHITE BLOOD COUNT 2.7 K/mm3 (4.0-10.0)
[2020-07-12 08:14] LABS: ACTIVATED PTT 39.7 SECONDS (25.2-36.5)
[2020-07-12 08:23] LABS: CHLORIDE 97 mmol/L (98-107); SODIUM 131 mmol/L (136-145)
[2020-07-12 08:25] LABS: ALBUMIN 3.6 g/dl (3.4-5.0); CALCIUM 8.9 mg/dL (8.5-10.1)
[2020-07-12 08:26] LABS: ANION GAP 11 MMOL/L (8-16); BLOOD UREA NITROGEN 4.9 mg/dL (7-18); CO2 23 mmol/L (21-32); GLUCOSE,RANDOM 138 mg/dL (74-106)
[2020-07-12 08:29] LABS: CREATININE 0.7 mg/dL (0.55-1.3); SGOT/AST 199 U/L (15-37); SGPT/ALT 107 U/L (13-61)
[2020-07-12] MEDS ORDERED: chlordiazePOXIDE HCL 25 MG CAPSULE PO ONE (08:29)
[2020-07-12 08:30] LABS: BILIRUBIN,TOTAL 8.4 mg/dL (0.2-1)
[2020-07-12 08:31] LABS: ALK PHOS 192 U/L (45-117)
[2020-07-12] MEDS ORDERED: chlordiazePOXIDE HCL 25 MG CAPSULE ONE (08:35)
[2020-07-12] MEDS ORDERED: LACTULOSE 20 GM/30 ML UDC (FOR ORAL USE ONLY) PO ONE (08:36)
[2020-07-12 08:38] LABS: PLATELET COUNT 15 K/MM3 (134-434)
[2020-07-12] MEDS ORDERED: LACTULOSE 20 GM/30 ML UDC (FOR ORAL USE ONLY) ONE (08:38)
[2020-07-12 08:45] LABS: MAGNESIUM 1.8 mg/dL (1.8-2.4)
[2020-07-12 08:48] LABS: BILIRUBIN,DIRECT 4.8 mg/dL (0.0-0.2)
[2020-07-12 08:49] LABS: PHOSPHOROUS 1.6 mg/dL (2.5-4.9)
[2020-07-12] MEDS ORDERED: LACTULOSE 20 GM/30 ML UDC (FOR ORAL USE ONLY) PO PRN (11:39)
[2020-07-12] MEDS ORDERED: LORazepam 2 MG/ML SDV VIAL IVPUSH PRN (11:40)
[2020-07-12] MEDS ORDERED: THIAMINE HCL 100 MG TABLET (FP) PO SCH (11:45)
[2020-07-12] MEDS ORDERED: MULTIVITAMINS (DAILY MVI) TABLET (FP) PO SCH (11:45)
[2020-07-12] MEDS ORDERED: MULTIVITAMINS (DAILY MVI) TABLET (FP) ONE (11:58)
[2020-07-12] MEDS ORDERED: THIAMINE HCL 100 MG TABLET (FP) ONE (11:58)
[2020-07-12 13:57] LABS: LDH 402 U/L (87-246)
[2020-07-12 14:55] VITALS: BMI 23.3
[2020-07-12] MEDS ORDERED: PrednisoLONE 15 MG/5 ML UNIT-DOSE CUP PO SCH (17:45)
[2020-07-12 17:56] LABS: HEMATOCRIT 36.5 % (35.4-49); HEMOGLOBIN 12.9 GM/dL (11.7-16.9); MCH 34.1 pg (25.7-33.7); MCHC 35.4 g/dl (32.0-35.9); MEAN CELL VOLUME 96.3 fl (80-96); MEAN PLT VOLUME 8.5 fl (7.5-11.1); RDW 15.7 % (11.9-15.9); WHITE BLOOD COUNT 3.6 K/mm3 (4.0-10.0)
[2020-07-12 17:58] LABS: PLATELET COUNT 30 K/MM3 (134-434)
[2020-07-12 18:05] LABS: INR 2.19 (0.83-1.09); PROTHROMBIN TIME (PATIENT) 25.9 SEC (9.7-13.0)
[2020-07-12 18:08] LABS: ACTIVATED PTT 36.5 SECONDS (25.2-36.5)
[2020-07-12] MEDS ORDERED: PT OWN MED DRAWER 7, Y5N ONE (19:05)
[2020-07-12] MEDS ORDERED: MUPIROCIN 2% TOPICAL OINTMENT FOR DECOLONIZATION NS SCH (22:00)
[2020-07-12] MEDS ORDERED: RIFAXIMIN 550 MG TABLET (UD) PO SCH (22:00)
[2020-07-12] MEDS ORDERED: CHLORHEXIDINE GLUCONATE 4% CLEANSER FOR DECOLONIZATION TP SCH (22:00)
[2020-07-12] MEDS ORDERED: LORazepam 2 MG/ML SDV VIAL IVPUSH ONE (22:08)
[2020-07-12 22:52] VITALS: BP 129/75; PULSE 94; TEMP 98.9
[2020-07-13] MEDS ORDERED: NADOLOL 20 MG TABLET (FP) PO SCH (10:00)
[2020-07-13] MEDS ORDERED: PANTOPRAZOLE 40 MG TABLET PO SCH (10:00)
== END 2020-07-12 23:10 | disposition short-term general hospital (02) | DRG 55 ==
LOC: JER 06:33 → JERBED 08:39 → JICU 14:28
PROVIDERS: ADMIT Internal Medicine; ATTEND Internal Medicine
PROC: 30233L1 Transfusion of Nonautologous Fresh Plasma into Peripheral Vein, Percutaneous Approach (ICD-10-PCS; principal; 2020-07-12)
PROC: 30233R1 Transfusion of Nonautologous Platelets into Peripheral Vein, Percutaneous Approach (ICD-10-PCS; 2020-07-12)
PROC: 30233K1 Transfusion of Nonautologous Frozen Plasma into Peripheral Vein, Percutaneous Approach (ICD-10-PCS; 2020-07-12)
DX: S06.5X1A Traumatic subdural hemorrhage with loss of consciousness of 30 minutes or less, initial encounter (principal); E72.20 Disorder of urea cycle metabolism, unspecified; D69.6 Thrombocytopenia, unspecified; S01.512A Laceration without foreign body of oral cavity, initial encounter; K70.40 Alcoholic hepatic failure without coma; K70.30 Alcoholic cirrhosis of liver without ascites; J45.909 Unspecified asthma, uncomplicated; W07.XXXA Fall from chair, initial encounter; Y93.89 Activity, other specified; Y92.008 Other place in unspecified non-institutional (private) residence as the place of occurrence of the external cause; Y99.8 Other external cause status; F10.239 Alcohol dependence with withdrawal, unspecified; R63.4 Abnormal weight loss; R56.9 Unspecified convulsions
CPT/HCPCS: 36415; 36430; 70450-TC; 72125-TC; 73562-TC-LT-FY; 73562-TC-RT-FY; 73590-TC-LT-FY; 73630-TC-LT; 76705-TC; 80053; 80307; 82140; 82248; 83010; 83615; 83735; 84100; 84484; 85025; 85027; 85384; 85610; 85730; 86850; 86900; 86901; 87086; 93005; 93010; 99291; 99292; C9803; P9017; P9034; U0003; U0005

== ENCOUNTER 2020-11-22 00:08 | Emergency (ER) | payer OTHER ==
[2020-11-22 00:29] VITALS: BP 115/71; PULSE 86; TEMP 98.4; BMI 25.4
[2020-11-22] MEDS ORDERED: ACETAMINOPHEN 500 MG TABLET (FP) PO ONE (00:48)
[2020-11-22] MEDS ORDERED: ACETAMINOPHEN 500 MG TABLET (FP) ONE (00:50)
[2020-11-22] MEDS ORDERED: KETOROLAC TROMETHAMINE 30 MG/1 ML VIAL IM ONE (01:55)
[2020-11-22] MEDS ORDERED: KETOROLAC TROMETHAMINE 30 MG/1 ML VIAL ONE (02:00)
== END 2020-11-22 02:07 | disposition home or self-care (01) ==
LOC: JER 00:08 → MERGE 00:08 → JER 02:07
PROC: 3E0233Z Introduction of Anti-inflammatory into Muscle, Percutaneous Approach (ICD-10-PCS; principal; 2020-11-22)
DX: G44.319 Acute post-traumatic headache, not intractable (principal); G50.1 Atypical facial pain; Y09 Assault by unspecified means; Y92.9 Unspecified place or not applicable
CPT/HCPCS: 70450-TC; 70486-TC; 72125-TC; 99285-25

== ENCOUNTER 2021-05-16 13:21 | Emergency (ER) | payer OTHER ==
[2021-05-16 13:40] VITALS: BMI 24.2
[2021-05-16 15:01] LABS: HEMATOCRIT 22.5 % (35.4-49); HEMOGLOBIN 7.7 GM/dL (11.7-16.9); MCH 35.4 pg (25.7-33.7); MEAN PLT VOLUME 7.6 fl (7.5-11.1); PLATELET COUNT 86 10^3/uL (134-434); RBC 2.17 M/mm3 (4.00-5.60); RDW 17.4 % (11.9-15.9); WHITE BLOOD COUNT 3.9 K/mm3 (4.0-10.0)
[2021-05-16 15:11] LABS: INR 3.55 (0.83-1.09); PROTHROMBIN TIME (PATIENT) 41.4 SEC (9.7-13.0)
[2021-05-16 15:14] LABS: ACTIVATED PTT 42.3 SECONDS (25.2-36.5)
[2021-05-16 15:17] LABS: CHLORIDE 89 mmol/L (98-107); SODIUM 122 mmol/L (136-145)
[2021-05-16 15:18] LABS: ALBUMIN 2.1 g/dl (3.4-5.0)
[2021-05-16 15:19] LABS: ANION GAP 11 MMOL/L (8-16); BLOOD UREA NITROGEN 3.3 mg/dL (7-18); CO2 21 mmol/L (21-32); GLUCOSE,RANDOM 118 mg/dL (74-106)
[2021-05-16 15:22] LABS: CREATININE 0.5 mg/dL (0.55-1.3); SGOT/AST 56 U/L (15-37); SGPT/ALT 20 U/L (13-61)
[2021-05-16 15:25] LABS: ALK PHOS 220 U/L (45-117)
[2021-05-16 15:28] LABS: BILIRUBIN,TOTAL > 25.0 mg/dL (0.2-1); CALCIUM 6.9 mg/dL (8.5-10.1); TOT PROT 5.2 g/dl (6.4-8.2)
[2021-05-16] MEDS ORDERED: CALCIUM GLUC IN NACL, ISO-OSM 1 GM/50 ML BAG IVPB ONE (15:43)
[2021-05-16] MEDS ORDERED: SODIUM CHLORIDE 0.9% 500 ML INFUS.BAG IV ONE (15:44)
[2021-05-16 16:27] LABS: ANISOCYTOSIS 2+; MACROCYTOSIS 1+; TARGET CELLS 1+
[2021-05-16] MEDS ORDERED: MAGNESIUM 1GM/D5W - 1 GM/100 ML IVPB IVPB ONE (17:17)
[2021-05-16] MEDS ORDERED: KCL 10 MEQ IVPB 30 MEQ/300 ML INFUS.BAG IVPB ONE (17:18)
[2021-05-16] MEDS ORDERED: CALCIUM GLUCONATE 10% - 1,000 MG/10 ML VIAL ONE (17:20)
[2021-05-16] MEDS: KCL 10 MEQ IVPB 10 MEQ/100 ML INFUS.BAG IVPB SCH ×2 (17:52→19:17)
[2021-05-16] MEDS ORDERED: POTASSIUM CHLORIDE TABS 20 MEQ TABLET.ER (FP) PO ONE ×2 (18:02→18:34)
[2021-05-16 22:19] VITALS: BP 120/61; PULSE 91
== END 2021-05-16 21:01 | disposition left against medical advice (07) ==
LOC: JER 13:21
DX: R17 Unspecified jaundice (principal); K74.60 Unspecified cirrhosis of liver; R22.32 Localized swelling, mass and lump, left upper limb; E83.51 Hypocalcemia; E87.6 Hypokalemia; R79.1 Abnormal coagulation profile; K72.90 Hepatic failure, unspecified without coma; E87.1 Hypo-osmolality and hyponatremia
CPT/HCPCS: 36415; 73030-TC-LT-FY; 80053; 82140; 82962; 83735; 85025; 85610; 85730; 86850; 86900; 86901; 93005; 93010; 93971; 99284-25